=== PATIENT | female | born 1965 | race American Indian/Alaskan Native ===

== ENCOUNTER 2018-12-14 19:49 | Emergency (ER) | payer OTHER ==
[~2018-12-14] VITALS: Ht 162.6 cm; Wt 94.8 kg
--- OUTSIDE RECORDS SUMMARY | ~2018-12-14 | XMS | Clinical Summary ---
Demographics + + + | Address | [address] | | | [place] [address] | + + + | Home Phone | | + + + | Preferred Language | Unknown | + + + | Marital Status | Unknown | + + + | Hinduism Affiliation | Unknown | + + + | Race | Unknown | + + + | Ethnic Group | Unknown | + + + Author + + + | Author | [facility] | | | and [place] | + + + | Organization | [facility] | | | and [place] | + + + | Address | Unknown | + + + | Phone | Unavailable | + + + Support + + +---------+ + | Name | Relationship | Address | Phone | + + +---------+ + | Liv Baugh | ECON | Unknown | | + + +---------+ + | Qasim Gardiner ECON | Unknown | | + + +---------+ + Care Team Providers + +------+ + | Care Children Counselor Name | Role | Phone | + +------+ + | Art Pennington PA-C | PP | | + +------+ + Allergies No Known Allergies Medications + + + +---------+------+------+-------+ | Medication | Sig | Dispensed | Refills | Star | End | Statu | | | | | | t | Date | s | | | | | | Date | | | + + + +---------+------+------+-------+ | | | | 0 | 09/1 | | Activ | | oxyCODONE-acetaminop | | | | 4/20 | | e | | hen (PERCOCET) | | | | 12 | | | | 10-325 mg per tablet | | | | | | | + + + +---------+------+------+-------+ | | | | 0 | 09/1 | | Activ | | oxyCODONE-acetaminop | | | | 4/20 | | e | | hen (PERCOCET) 5-325 | | | | 12 | | | | mg per tablet | | | | | | | + + + +---------+------+------+-------+ | zolpidem (AMBIEN) | Take 10 mg by mouth | | 0 | 05/1 | | Activ | | 10 mg tablet | nightly as needed. | | | 0/20 | | e | | | | | | 10 | | | + + + +---------+------+------+-------+ | Fish Oil OIL | one by mouth daily | | 0 | 05/1 | | Activ | | | | | | 0/20 | | e | | | | | | 10 | | | + + + +---------+------+------+-------+ | | CAPS-25 mg by mouth | | 0 | 05/1 | | Activ | | HYDROCHLOROTHIAZIDE | daily | | | 0/20 | | e | | | | | | 10 | | | + + + +---------+------+------+-------+ | B Complex-C (SUPER | one by mouth daily | | 0 | 05/1 | | Activ | | B COMPLEX) TABS | | | | 0/20 | | e | | | | | | 10 | | | + + + +---------+------+------+-------+ Active Problems + + + | Problem | Noted Date | + + + | ABDOMINAL PAIN | | + + + Social History + +-------+ +--------+------+ | Tobacco Use | Types | Packs/Day | Years | Date | | | | | Used | | + +-------+ +--------+------+ | Never Assessed | | | | | + +-------+ +--------+------+ + + + | Sex Assigned at | Date Recorded | | | | + + + | Not on file | | + + + + + + + | Job Start Date | Occupation | Industry | + + + + | Not on file | Not on file | Not on file | + + + + + + + + | Travel History | Travel Start | Travel End | + + + + + + | No recent travel history available. | + + Last Filed Vital Signs + + + + | Vital Sign | Reading | Time Taken | + + + + | Blood Pressure | 140/100 | 11/14/2009 0000 PDT | + + + + | Pulse | - | - | + + + + | Temperature | - | - | + + + + | Respiratory Rate | - | - | + + + + | Oxygen Saturation | - | - | + + + + | Inhaled Oxygen | - | - | | Concentration | | | + + + + | Weight | 116.6 kg (257 lb) | 11/14/2009 0000 PDT | + + + + | Height | 162.6 cm (5' 4") | 07/04/2009 0000 PST | + + + + | Body Mass Index | 44.11 | 07/04/2009 0000 PST | + + + + Plan of Treatment + + + + + | Health Maintenance | Due Date | Last Done | Comments | + + + + + | Vaccine: | | | | | Dtap/Tdap/Td (1 - | 6 | | | | Tdap) | | | | + + + + + | Cervical Cancer | | | | | Screening (Pap) | 7 | | | + + + + + | Vaccine: Zoster (1 | | | | | of 2) | 7 | | | + + + + + | Vaccine: Influenza | | | | | (Season Ended) | 9 | | | + + + + + Results Not on filefrom Last 3 Months Insurance + +--------+ +--------+ +---------+--------+ | Payer | Benefi | Subscriber | Effect | Phone | Address | Type | | | t Plan | ID | abhijeet | | | | | | / | | Dates | | | | | | Group | | | | | | + +--------+ +--------+ +---------+--------+ | [employer] | [employer] | [id number] | | [phone] | | Medica | | MEDICAID HMO | HEALTH | | 012-Pr | 1 | | id | | | MDCD | | esent | | | | | | HMO OR | | | | | | + +--------+ +--------+ +---------+--------+ | HEALTH | IHS | [id number] | 06/05/ | | | Indemn | | SERVICE | YELLOW | | 2012-P | | | ity | | | HAWK | | resent | | | | + +--------+ +--------+ +---------+--------+ + +--------+ +--------+ + + | Guarantor Name | Accoun | Relation to | Date | Phone | Billing Address | | | t Type | Patient | of | | | | | | | | | | + +--------+ +--------+ + + | Caitlyn Enriquez | Person | Self | [birth year] | [address] | | | al/Fam | | 1965 | [phone] | [place] | | | [place] | | | [address] (Home) | [address] | + +--------+ +--------+ + + Advance Directives Patient has advance care planning documents on file. For more information, please contact:[facility] [place] [address]
--- OUTSIDE RECORDS SUMMARY | ~2018-12-14 | XMS | Clinical Summary ---
Demographics + + + | Address | [address] | | | [place] [address] | + + + | Home Phone | | + + + | Preferred Language | Unknown | + + + | Marital Status | Unknown | + + + | Anabaptist Affiliation | Unknown | + + + | Race | Unknown | + + + | Ethnic Group | Unknown | + + + Author + + + | Author | [facility] | | | and [place] | + + + | Organization | [facility] | | | and [place] | [...] Team Providers + +------+ + | Care Paper Rewinder Name | Role | Phone | + [...] | [employer] | MODA | [id number] | | [phone] | | Medica | | MEDICAID HMO | HEALTH | | 012-Pr | 1 | | id | | | MDCD | | esent | | | | | | HMO [place] | | | | | | + +--------+ +--------+ +---------+--------+ | HEALTH | IHS | [id number] | 06/05/ | | | Indemn | [...] Person | Self | [birth year] | [address] | | | al/Fam | | 1965 | [phone] | [place] | | | [place] | | | 4 (Home) | [address] | + +--------+ +--------+ + + Advance Directives Patient has advance care planning documents on file. For more information, please contact:[facility] [place] [address]
--- OUTSIDE RECORDS SUMMARY | ~2018-12-14 | XMS | Encounter Summary ---
Demographics + + + | Address | [address] | | | [place] [address] | + + + | Home Phone | | + + + | Preferred Language | Unknown | + + + | Marital Status | Single | + + + | Scientology Affiliation | NON | + + + | Race | or | + + + | Ethnic Group | Not or | + + + Author + + + | Author | [facility] | + + + | Organization | [facility] | + + + | Address | Unknown | + + + | Phone | Unavailable | + + + Care Team Providers + +------+ + | Care Employment Clerk Name | Role | Phone | + +------+ + PCP | Unavailable | + +------+ + Encounter Details +--------+ + + + + | Date | Type | Department | Care Team | Description | +--------+ + + + + | 08/20/ | Results | NON-[facility] | Arnulfo Styles, | | | 2012 | Only | Department | MD [address] | | | | | | [address] [place] | | | | | | [address] | | | | | | [phone] | | | | | | | | +--------+ + + + + Social History + +-------+ [...] recent travel history available. | + + documented as of this encounter Plan of Treatment Not on filedocumented as of this encounter Procedures + +--------+ + + + | Procedure Name | Priori | Date/Time | Associated Diagnosis | Comments | | | ty | | | | + +--------+ + + + | UA, DIPSTICK ONLY | Routin | 08/20/2012 | | Results for this | | | e | 10:50 AM | | procedure are in the | | | | PST | | results section. | + +--------+ + + + | HCG QUAL, URINE | Routin | 08/20/2012 | | Results for this | | | e | 10:50 AM | | procedure are in the | | | | PST | | results section. | + +--------+ + + + | ABDOMEN 2 VIEW 37243 | Routin | 08/20/2012 | | Results for this | | | e | 8:58 AM | | procedure are in the | | | | PST | | results section. | + +--------+ + + + | CHEST 2 VIEW 29991 | Routin | 08/20/2012 | | Results for this | | | e | 8:30 AM | | procedure are in the | | | | PST | | results section. | + +--------+ + + + | RAPID FLU | Routin | 08/20/2012 | | Results for this | | | e | 7:57 AM | | procedure are in the | | | | PST | | results section. | + +--------+ + + + | CBC W/DIFF, REFLEX | Routin | 08/20/2012 | | Results for this | | | e | 7:50 AM | | procedure are in the | | | | PST | | results section. | + +--------+ + + + | BASIC METABOLIC SET | Routin | 08/20/2012 | | Results for this | | (NA, K, CL, TCO2, | e | 7:50 AM | | procedure are in the | | BUN, CR, GLU, CA) | | PST | | results section. | + +--------+ + + + | CAP GLU,POC | Routin | 08/20/2012 | | Results for this | | | e | 7:42 AM | | procedure are in the | | | | PST | | results section. | + +--------+ + + + documented in this encounter Results MARVA VOSS ONLY (08/20/2012 10:50 AM PST) + + + + + + | Component | Value | Ref Range | Performed | Pathologist | | | | | At | Signature | + + + + + + | COLOR(UR) | Light-Yellow | YELLOW | [facility] | | | | | | A MEDICAL | | | | | | CENTER | | + + + + + + | APPEARANCE | Clear | CLEAR | [facility] | | | | | | A MEDICAL | | | | | | CENTER | | + + + + + + | SPECIFIC | 1.004 | 1.005 - 1.030 | [facility] | | | GRAVITY | | | A MEDICAL | | | | | | CENTER | | + + + + + + | PH(UR) | 6.5 | 5.0 - 8.0 | [facility] | | | | | | A MEDICAL | | | | | | CENTER | | + + + + + + | PROTEIN, UA | NEG | NEGATIVE | [facility] | | | | | | A MEDICAL | | | | | | CENTER | | + + + + + + | GLUCOSE, UA | NEG | NEGATIVE | [facility] | | | | | | A MEDICAL | | | | | | CENTER | | + + + + + + | KETONES, UA | NEG | NEGATIVE | [facility] | | | | | | A MEDICAL | | | | | | CENTER | | + + + + + + | BILIRUBIN | NEG | NEGATIVE | [facility] | | | | | | A MEDICAL | | | | | | CENTER | | + + + + + + | BLOOD | NEG | NEGATIVE | [facility] | | | | | | A MEDICAL | | | | | | CENTER | | + + + + + + | NITRITES | NEG | NEGATIVE | [facility] | | | | | | A MEDICAL | | | | | | CENTER | | + + + + + + | LEUKOCYTE | NEG | NEGATIVE | [facility] | | | ESTERASE | | | A MEDICAL | | | | | | CENTER | | + + + + + + | UROBILINOGE | NEG | NEGATIVE MG/DL | [facility] | | | N | | | A MEDICAL | | | | | | CENTER | | + + + + + + | SOURCE | CLEAN CATCH | | [facility] | | | | | | A MEDICAL | | | | | | CENTER | | + + + + + + + + | Specimen | + + | | + + + + + + + | Performing | Address | City/State/Zipcode | Phone Number | | Organization | | | | + + + + + | [facility] | And | [place] [address] | [phone] | | MEDICAL CENTER | Streets | | | + + + + + HCG QUAL, URINE (08/20/2012 10:50 AM PST) + + + + + + | Component | Value | Ref Range | Performed | Pathologist | | | | | At | Signature | + + + + + + | HCG QUAL | NEGATIVE | NEGATIVE | [facility] | | | URINE | | | A MEDICAL | | | | | | CENTER | | + + + + + + + + | Specimen | + + | | + + + + + + + | Performing | Address | City/State/Zipcode | Phone Number | | Organization | | | | + + + + + | [facility] | [address] | [place] [address] | [phone] | | [facility] | [facility] | | | + + + + + ABDOMEN 2 VIEW [id number] (08/20/2012 8:58 AM PST) + + | Specimen | + + | | + + + + + | Narrative | Performed At | + + + | Exam: Abdomen two views. Indication: 47-year-old female with | [facility] | | abdominal pain. Comparison: None available. Findings: Supine | DEPARTMENT OF | | and upright abdominal films were obtained. There is increased | RADIOLOGY | | colonic stool. There are no signs of bowel obstruction, ileus or | | | pneumoperitoneum. Opaque density, probably a pill, projects in the | | | stomach. There are cholecystectomy clips. | | | Impression: Increased colonic stool. | | + + + + + | Procedure Note | + + | Interface, Radiology Results - 02/07/2015 5:39 PM PDT Exam: Abdomen two views. | | Indication: 47-year-old female with abdominal pain. | | Comparison: None available. | | Findings: Supine and upright abdominal films were obtained. There | | is increased colonic stool. There are no signs of bowel obstruction, | | ileus or pneumoperitoneum. Opaque density, probably a pill, projects | | in the stomach. There are cholecystectomy clips. | | Impression: Increased colonic stool. | + + + +---------+ + + | Performing | Address | City/State/Zipcode | Phone Number | | Organization | | | | + +---------+ + + | [facility] | | | | | RADIOLOGY | | | | + +---------+ + + CHEST 2 VIEW [id number] (08/20/2012 8:30 AM PST) + + | Specimen | + + | | + + + + + | Narrative | Performed At | + + + | Exam: Chest, two views. Indication: 47-year-old female with | [facility] | | chills. Comparison: None available. Findings: PA and lateral | DEPARTMENT OF | | films were obtained. There is suboptimal depth of | RADIOLOGY | | inspiration. Heart size is within normal limits. Pulmonary | | | vessels are not congested. Lungs are clear; no signs of pneumonia, | | | atelectasis, adenopathy or pleural effusion. Descending aorta is | | | uncoiled. There are cholecystectomy clips in right upper quadrant. | | | Impression: No evidence of pneumonia. | | + + + + + | Procedure Note | + + | Interface, Radiology Results - 02/07/2015 5:39 PM PDT Exam: Chest, two views. | | Indication: 47-year-old female with chills. | | Comparison: None available. | | Findings: PA and lateral films were obtained. There is suboptimal | | depth of inspiration. Heart size is within normal limits. Pulmonary | | vessels are not congested. Lungs are clear; no signs of pneumonia, | | atelectasis, adenopathy or pleural effusion. Descending aorta is | | uncoiled. There are cholecystectomy clips in right upper quadrant. | | Impression: No evidence of pneumonia. | + + + +---------+ + + | Performing | Address | City/State/Zipcode | Phone Number | | Organization | | | | + +---------+ + + | [facility] | | | | | RADIOLOGY | | | | + +---------+ + + RAPID FLU (08/20/2012 7:57 AM PST) + + + + + + | Component | Value | Ref Range | Performed | Pathologist | | | | | At | Signature | + + + + + + | FLU A | FLU A NOT DETECTED | | [facility] | | | | | | A MEDICAL | | | | | | CENTER | | + + + + + + | FLU B | FLU B NOT DETECTED | | [facility] | | | | | | A MEDICAL | | | | | | CENTER | | + + + + + + | SPECIMEN | DOCUMENT MANAGEMENT TECHNICIAN SWAB MINI TIP | | [facility] | | | | | | A MEDICAL | | | | | | CENTER | | + + + + + + + + | Specimen | + + | | + + + + + + + | Performing | Address | City/State/Zipcode | Phone Number | | Organization | | | | + + + + + | [facility] | | | | | LABORATORY | | | | + + + + + | [facility] | And | [place] [address] | [phone] | | MEDICAL CENTER | Streets | | | + + + + + DORITA Ramirez/PIERRE SANCHEZ (08/20/2012 7:50 AM PST) + + + + + + | Component | Value | Ref Range | Performed | Pathologist | | | | | At | Signature | + + + + + + | WHITE BLOOD | 7.1 | 4.3 - 11.0 X10 | [facility] | | | CELL COUNT | | 3/uL | A MEDICAL | | | | | | CENTER | | + + + + + + | HEMOGLOBIN | 13.4 | 12.0 - 16.0 | [facility] | | | | | g/dL | A MEDICAL | | | | | | CENTER | | + + + + + + | RED BLOOD | 4.81 | 4.2 - 5.4 X10 | [facility] | | | CELL COUNT | | 6/uL | A MEDICAL | | | | | | CENTER | | + + + + + + | HEMATOCRIT | 41.6 | 38.0 - 47.0 % | [facility] | | | | | | A MEDICAL | | | | | | CENTER | | + + + + + + | MCV | 86.6 | 82 - 100 fl | [facility] | | | | | | A MEDICAL | | | | | | CENTER | | + + + + + + | MCH | 27.8 (L) | 28.0 - 32.0 pg | [facility] | | | | | | A MEDICAL | | | | | | CENTER | | + + + + + + | MCHC | 32.1 | 32 - 36 g/dL | [facility] | | | | | | A MEDICAL | | | | | | CENTER | | + + + + + + | RDW | 14.7 | 12 - 15 fL | [facility] | | | | | | A MEDICAL | | | | | | CENTER | | + + + + + + | PLATELET | 261 | 150 - 450 X10 3 | [facility] | | | COUNT | | | A MEDICAL | | | | | | CENTER | | + + + + + + | MPV | 8.3 (L) | 9.0 - 12.0 fL | [facility] | | | | | | A MEDICAL | | | | | | CENTER | | + + + + + + | NEUTROPHIL | 66.7 | 40 - 80 % | [facility] | | | % | | | A MEDICAL | | | | | | CENTER | | + + + + + + | LYMPHOCYTE | 24.2 | 20 - 50 % | [facility] | | | % | | | A MEDICAL | | | | | | CENTER | | + + + + + + | EOS % | 1.2 | 0 - 5 % | [facility] | | | | | | A MEDICAL | | | | | | CENTER | | + + + + + + | BASO % | 2.8 (H) | 0 - 1 % | [facility] | | | | | | A MEDICAL | | | | | | CENTER | | + + + + + + | MONOCYTE % | 5.1 | 2 - 10 % | [facility] | | | | | | A MEDICAL | | | | | | CENTER | | + + + + + + | BANDS % | DOCUMENT MANAGEMENT TECHNICIAN | 0 - 7 % | [facility] | | | | | | A MEDICAL | | | | | | CENTER | | + + + + + + + + | Specimen | + + | | + + + + + + + | Performing | Address | City/State/Zipcode | Phone Number | | Organization | | | | + + + + + | [facility] | And | [place] [address] | [phone] | | MEDICAL CENTER | Streets | | | + + + + + BASIC METABOLIC SET (NA, K, CL, TCO2, BUN, CR, GLU, CA) (08/20/2012 7:50 AM PST) + +---------+ + + + | Component | Value | Ref Range | Performed | Pathologist | | | | | At | Signature | + +---------+ + + + | SODIUM, | 142 | 137 - 146 MEQ/L | [facility] | | | PLASMA | | | A MEDICAL | | | (LAB) | | | CENTER | | + +---------+ + + + | POTASSIUM, | 3.8 | 3.5 - 5.2 MEQ/L | [facility] | | | PLASMA | | | A MEDICAL | | | (LAB) | | | CENTER | | + +---------+ + + + | CO2 | 26 | 22 - 28 MEQ/L | [facility] | | | | | | A MEDICAL | | | | | | CENTER | | + +---------+ + + + | CHLORIDE, | 108 (H) | 98 - 106 MEQ/L | [facility] | | | PLASMA | | | A MEDICAL | | | (LAB) | | | CENTER | | + +---------+ + + + | ANION GAP | 11.8 | 8 - 16 MEQ/L | [facility] | | | | | | A MEDICAL | | | | | | CENTER | | + +---------+ + + + | GLUCOSE, | 155 (H) | 70 - 105 MG/DL | [facility] | | | PLASMA | | | A MEDICAL | | | (LAB) | | | CENTER | | + +---------+ + + + | BUN, PLASMA | 12 | 8 - 30 MG/DL | [facility] | | | (LAB) | | | A MEDICAL | | | | | | CENTER | | + +---------+ + + + | CREATININE | 0.64 | 0.6 - 1.1 MG/DL | [facility] | | | PLASMA | | | A MEDICAL | | | (LAB) | | | CENTER | | + +---------+ + + + | BUN/CREATIN | 18 | 6 - 20 RATIO | [facility] | | | INE RATIO | | | A MEDICAL | | | | | | CENTER | | + +---------+ + + + | CALCIUM, | 9.7 | 8.5 - 10.8 | [facility] | | | PLASMA | | MG/DL | A MEDICAL | | | (LAB) | | | CENTER | | + +---------+ + + + | AMYLASE,JOCY | 34 | 28 - 100 U/L | [facility] | | | SMA | | | A MEDICAL | | | | | | CENTER | | + +---------+ + + + | AST(SGOT) | 34 | 10 - 41 U/L | [facility] | | | | | | A MEDICAL | | | | | | CENTER | | + +---------+ + + + | ALT (SGPT) | 24 | 7 - 51 U/L | [facility] | | | | | | A MEDICAL | | | | | | CENTER | | + +---------+ + + + | ALK PHOS | 72 | 40 - 180 U/L | [facility] | | | | | | A MEDICAL | | | | | | CENTER | | + +---------+ + + + | TOTAL | 8.4 | 6.7 - 8.5 G/DL | [facility] | | | PROTEIN, | | | A MEDICAL | | | PLASMA | | | CENTER | | | (LAB) | | | | | + +---------+ + + + | ALBUMIN, | 4.6 | 3.5 - 5.0 G/DL | [facility] | | | PLASMA | | | A MEDICAL | | | (LAB) | | | CENTER | | + +---------+ + + + | BILIRUBIN | 1.2 | 0.2 - 1.6 MG/DL | [facility] | | | TOTAL | | | A MEDICAL | | | | | | CENTER | | + +---------+ + + + | BILIRUBIN | 0.1 | 0.0 - 0.3 MG/DL | [facility] | | | DIRECT | | | A MEDICAL | | | | | | CENTER | | + +---------+ + + + | INDIRECT | 1.1 (H) | 0.1 - 1.0 MG/DL | [facility] | | | BILIRUBIN | | | A MEDICAL | | | | | | CENTER | | + +---------+ + + + | LIPASE | 31 | 5 - 57 U/L | [facility] | | | (LAB) | | | A MEDICAL | | | | | | CENTER | | + +---------+ + + + | ESTIMATED | 106.7 | >60 | [facility] | | | GFR | | | A MEDICAL | | | | | | CENTER | | + +---------+ + + + | FASTING? | UNK | HR | [facility] | | | | | | A MEDICAL | | | | | | CENTER | | + +---------+ + + + + + | Specimen | + + | | + + + + + + + | Performing | Address | City/State/Zipcode | Phone Number | | Organization | | | | + + + + + | [facility] | And | [place] [address] | [phone] | | [facility] | Streets | | | + + + + + CAP GLU,POC (08/20/2012 7:42 AM PST) + + + + + -+ | Component | Value | Ref Range | Performed | Pathologist | | | | | At | Signature | + + + + + -+ | BLOOD | 147 (H)Comment: Meter | 70 - 110 MG/DL | [facility] | | | GLUCOSE, | ID: [id number]: | | OF CARE | | | POC | [id number] Ovi Saravia | | TESTING | | | |Therapy Manager: [id number] Ovi Saravia | | | | | | | | | | + + + + + -+ + + | Specimen | + + | | + + + +---------+ + + | Performing | Address | City/State/Zipcode | Phone Number | | Organization | | | | + +---------+ + + | [facility] | | | | | TESTING | | | | + +---------+ + + documented in this encounter Visit Diagnoses Not on filedocumented in this encounter"
--- OUTSIDE RECORDS SUMMARY | ~2018-12-14 | XMS | Clinical Summary ---
Demographics + + + | Address | [address] | | | [place] [address] | + + + | Home Phone | | + + + | Preferred Language | Unknown | + + + | Marital Status | Single | + + + | Caodaism Affiliation | NON | + + + | Race | or | + + + | Ethnic Group | Not or | + + + Author + + + | Organization | Unknown | + + + | Address | Unknown | + + + | Phone | Unavailable | + + + Care Team Providers + +------+ + | Care Oil Well Driller Name | Role | Phone | + +------+ + PP | Unavailable | + +------+ + Source Comments [facility] fully [facility] Allergies Not on File Medications Not on file Active Problems Not on file Social History + +-------+ +--------+------+ | Tobacco [...] recent travel history available. | + + Plan of Treatment + + + + + | Health Maintenance | Due Date | Last Done | Comments | + + + + + | Influenza (Flu) | | | | | vaccination (Season | 9 | | | | Ended) | | | | + + + + + | Pneumococcal | Aged Out | | No longer eligible | | vaccination | | | based on patient's | | | | | age to complete this | | | | | topic | + + + + + Results Not on filefrom Last 3 Months"
--- OUTSIDE RECORDS SUMMARY | ~2018-12-14 | XMS | Encounter Summary ---
Demographics + + + | Address | [address] | | | [place] [address] | + + + | Home Phone | | + + + | Preferred Language | Unknown | + + + | Marital Status | Single | + + + | Mormonism Affiliation | NON | + + + | Race | or | + + + | Ethnic Group | Not or | + + + Author + + + | Author | [facility] | + + + | Organization | [facility] | + + + | Address | Unknown | + + + | Phone | Unavailable | + + + Care Team Providers + +------+ + | Care Acoustical Engineer Name | Role | Phone | + [...] [place] | | | | | | [address] | | | | | | [phone] | | | | | | | [...] + + + | ABDOMEN 2 VIEW [id number] | Routin | 08/20/2012 | | Results for this | | | e | 8:58 AM | | procedure are in the | | | | PST | | results section. | + +--------+ + + + | CHEST 2 VIEW [id number] | Routin | 08/20/2012 | | Results [...] + + | [facility] | And | [place] [address] | [phone] | | MEDICAL CENTER | Streets | [...] + + | [facility] | [address] | [place] [address] | [phone] | | [facility] | [facility] | | | + + + + + ABDOMEN 2 VIEW [id number] (08/20/2012 8:58 AM PST) + + | [...] + +---------+ + + CHEST 2 VIEW [id number] (08/20/2012 8:30 AM PST) + + | [...] + + + + | SPECIMEN | HOME ENERGY RATER SWAB MINI TIP | | [facility] | [...] | + + + + + | [facility] | And | [place] [address] | [phone] | | MEDICAL CENTER | Streets | [...] + + + | BANDS % | HOME ENERGY RATER | 0 - 7 % | [facility] [...] | [facility] | And | [place] [address] | [phone] | | MEDICAL CENTER | Streets | [...] 142 | 137 - 146 MEQ/L | [facility] | | | PLASMA | | | [...] | + + + + + | [facility] | And | [place] [address] | [phone] | | [facility] | Streets | | | + [...] POINT | | | GLUCOSE, | ID: [id number]: | | OF CARE | | | POC | [id number] Ovi Saravia | | TESTING | | | |Solar Sales Ambassador: [id number] Ovi Saravia | | | | | [...]
--- OUTSIDE RECORDS SUMMARY | ~2018-12-14 | XMS | Clinical Summary ---
Demographics + + + | Address | [address] | | | [place] [address] | + + + | Home Phone | | + + + | Preferred Language | Unknown | + + + | Marital Status | Single | + + + | Gnosticist Affiliation | NON | + + + | Race | or | + + + | Ethnic Group | Not or | + + + Author + + + | Organization | Unknown | + + + | Address | Unknown | + + + | Phone | Unavailable | + + + Care Team Providers + +------+ + | Care Inventory Technician Name | Role | Phone | + +------+ + PP | Unavailable | + +------+ + Source Comments [facility] Allergies Not on File Medications Not on [...]
[~2018-12-14 19:49] MED LIST: 1ST CHOICE LAN1 EACH MISC; AMBIEN10 MG PO; ASPIR-LOW81 MG PO; BACTRIM DS TAB1 EACH PO; BUPROPION XL300 MG PO; CEPHALEXIN500 MG PO; COZAAR100 MG PO; CRESTOR10 MG PO; DILANTIN100 MG PO; GLUCOPHAGE1000 MG PO; GLYBURIDE2.5 MG PO; GLYBURIDE5 MG PO; HYDROCHLOROTHIA25 MG PO; HYDROCORTISONE28 G3 TP; INSULIN; LANTUS SOL100 UNIT/1 SUB-Q; LEVAQUIN500 MG PO; LEVEMIR100 UNIT/1 SUB-Q; LISINOPRIL10 MG PO; LOMOTIL TABLET1 EACH PO; MAGNESIUM OXID400 MG PO; NEURONTIN600 MG; NICORETTE2 MG MM; NORCO 5-325 TA1 EACH PO; NOVOLOG FL100 UNIT/1 SUB-Q; OXYCODONE-ACET1 EAC1 PO; POTASSIUM CHLO10 MEQ PO; PROZAC20 MG PO; SEROQUEL XR150 MG PO; SEROQUEL XR300 MG PO; SEROQUEL300 MG PO; TRAMADOL HCL50 MG PO; XANAX2 MG PO; ZITHROMAX250 MG PO; ZOFRAN ODT8 MG PO; ZOLPIDEM TARTRA10 MG PO
[2018-12-14] MEDS ORDERED: BACTRIM DS TAB1 EACH PO (20:23)
== END 2018-12-14 21:00 | disposition home or self-care (01) ==
LOC: ED 19:49
DX: S31.103A Unspecified open wound of abdominal wall, right lower quadrant without penetration into peritoneal cavity, initial encounter (principal); L03.311 Cellulitis of abdominal wall; E11.9 Type 2 diabetes mellitus without complications; I10 Essential (primary) hypertension; F41.9 Anxiety disorder, unspecified; Z86.73 Personal history of transient ischemic attack (TIA), and cerebral infarction without residual deficits; F17.200 Nicotine dependence, unspecified, uncomplicated; Z90.710 Acquired absence of both cervix and uterus; Z88.8 Allergy status to other drugs, medicaments and biological substances; Z79.82 Long term (current) use of aspirin; Z79.4 Long term (current) use of insulin; Z79.899 Other long term (current) drug therapy; X58.XXXA Exposure to other specified factors, initial encounter; Z23 Encounter for immunization
CPT/HCPCS: 90471; 90715; 99284-25

== ENCOUNTER 2021-03-27 09:41 | Emergency (ER) | payer OTHER ==
[~2021-03-27] VITALS: Ht 162.6 cm; Wt 95.2 kg
[~2021-03-27 09:41] MED LIST changes: +CIPRO500 MG PO
[2021-03-27] MEDS ORDERED: MECLIZINE HCL25 MG PO (13:21)
== END 2021-03-27 13:40 | disposition home or self-care (01) ==
LOC: ED 09:41
DX: S06.9X9A Unspecified intracranial injury with loss of consciousness of unspecified duration, initial encounter (principal); S00.03XA Contusion of scalp, initial encounter; S70.02XA Contusion of left hip, initial encounter; S20.212A Contusion of left front wall of thorax, initial encounter; S40.012A Contusion of left shoulder, initial encounter; E11.9 Type 2 diabetes mellitus without complications; R42 Dizziness and giddiness; I10 Essential (primary) hypertension; F17.200 Nicotine dependence, unspecified, uncomplicated; Z88.6 Allergy status to analgesic agent; Y04.8XXA Assault by other bodily force, initial encounter; Z88.1 Allergy status to other antibiotic agents; Z86.73 Personal history of transient ischemic attack (TIA), and cerebral infarction without residual deficits; Z88.8 Allergy status to other drugs, medicaments and biological substances; Z79.82 Long term (current) use of aspirin
CPT/HCPCS: 70450; 71101; 73030; 73502; 80053; 85025; 96374; 96375; 99284-25; J1200; J1885; J2765; J7030

== ENCOUNTER 2021-07-21 22:07 | Emergency (ER) | payer OTHER ==
[~2021-07-21] VITALS: Ht 162.6 cm; Wt 90.9 kg
[~2021-07-21 22:07] MED LIST changes: +MECLIZINE HCL25 MG PO
[2021-07-22] MEDS ORDERED: HYDROCODON-ACE1 EA10 PO (02:18)
[2021-07-22] MEDS ORDERED: CEPHALEXIN500 MG PO (02:19)
--- NOTE | 2021-07-22 04:50 | NUR ---
SWAB DONE TO BOTH NARES AT 2235 ON 07-21-2021
== END 2021-07-22 02:37 | disposition home or self-care (01) ==
LOC: ED 22:07
DX: U07.1 COVID-19 (principal); E11.9 Type 2 diabetes mellitus without complications; I10 Essential (primary) hypertension; G47.00 Insomnia, unspecified; F17.200 Nicotine dependence, unspecified, uncomplicated; Z88.1 Allergy status to other antibiotic agents; Z88.8 Allergy status to other drugs, medicaments and biological substances; Z79.82 Long term (current) use of aspirin; Z23 Encounter for immunization
CPT/HCPCS: 80053; 81001; 85025; 96374; 96375; 99284-25; A9270; C9803; J1170; J1885; M0247; U0003

== ENCOUNTER 2024-03-16 11:56 | Emergency (ER) | payer OTHER ==
[~2024-03-16] VITALS: Ht 162.6 cm; Wt 210.0 kg
[~2024-03-16 11:56] MED LIST changes: +HYDROCODON-ACE1 EA10 PO
[2024-03-16] MEDS ORDERED: KETOROLAC TROMETHAMINE 15 MG/ML VIAL IV ONE ×2 (12:30→15:45)
[2024-03-16] MEDS ORDERED: SODIUM CHLORIDE 0.9% 1,000 ML IV PRN (12:30)
[2024-03-16] MEDS ORDERED: ondansetron HCL 4 MG/2 ML VIAL IV PRN (12:30)
[2024-03-16 12:57] LABS: EOSINOPHILS 1.4 % (0-6); HEMATOCRIT 44.1 % (35.0-50.0); LYMPHOCYTES 31.4 % (24-44); MCH 28.9 (27-36); MCHC 34.1 g/dl (30-36); MCV 84.7 fl (81-99); MONOCYTES 6.1 % (0-12); NEUTROPHILS 60.1 % (39-80); PLATELET COUNT 312 K/uL (140-440); RBC 5.21 M/ul (4.3-5.7); RDW 14.2 (10.5-15.0)
[2024-03-16 13:07] LABS: ALBUMIN 3.5 g/dL (3.4-5.0); ALBUMIN/GLOBULIN RATIO 0.95 (1.1-2.4); ANION GAP 9.2 (7-21); BILIRUBIN, TOTAL 0.8 ng/dL (0.2-1.0); BUN/CREATININE RATIO 15.59 (6.0-28.6); CALCIUM 9.1 mg/dL (8.5-10.1); CREATININE, SERUM 1.09 mg/dL (0.55-1.02); POTASSIUM 3.2 mmol/L (3.5-5.1); PROTEIN, TOTAL 7.2 g/dL (6.4-8.2)
[2024-03-16 13:37] LABS: BILIRUBIN, URINE NEGATIVE (negative); BLOOD/HGB, URINE NEGATIVE (Negative); KETONE, URINE TRACE (Negative); LEUK ESTERASE, URINE TRACE (negative); NITRITE, URINE POSITIVE (negative)
[2024-03-16 13:49] LABS: CASTS, URINE NONE SEEN \\lpf; CRYSTALS, URINE NONE SEEN (0-1+); RED BLOOD CELLS, URINE 0-1 /hpf (0-5)
[2024-03-16 13:50] LABS: BACTERIA, URINE 4+ /hpf (negative); WHITE BLOOD CELLS, URINE >50 /HPF (0-5)
[2024-03-16 13:51] LABS: EPITHELIAL CELLS, URINE SQUAMOUS 2+ /lpf (0-1+)
[2024-03-16 13:52] LABS: COLLECTION TYPE, URINE CLEAN CATCH; REFLEX CULTURE, URINE No (No)
[2024-03-16] MEDS ORDERED: HYDROmorphone HCL 1 MG/ML SYR IV ONE ×2 (15:45→17:45)
[2024-03-16] MEDS ORDERED: CIPROFLOXACIN/D5W 400 MG IV ONE (15:45)
[2024-03-16] MEDS ORDERED: ONDANSETRON ODT4 MG PO (18:44)
[2024-03-16] MEDS ORDERED: CEFDINIR300 MG PO (18:44)
[2024-03-16] MEDS ORDERED: HYDROCODON-ACE1 EA10 PO (18:44)
[2024-03-16 19:02] VITALS: BP 148/86
[2024-03-16] MEDS ORDERED: ONDANSETRON 4 MG HOME.PACK SL ONE (19:30)
== END 2024-03-16 19:02 | disposition home or self-care (01) ==
LOC: ED 11:56
PROVIDERS: Emergency Medicine
DX: N12 Tubulo-interstitial nephritis, not specified as acute or chronic (principal); E11.9 Type 2 diabetes mellitus without complications; I10 Essential (primary) hypertension; F17.200 Nicotine dependence, unspecified, uncomplicated; Z86.73 Personal history of transient ischemic attack (TIA), and cerebral infarction without residual deficits; Z88.8 Allergy status to other drugs, medicaments and biological substances; Z79.82 Long term (current) use of aspirin
CPT/HCPCS: 36415; 74176; 80053; 81001; 85025; 96365; 96375; 96376; 99284-25; J0744; J1170; J1885; J2405; J7030

== ENCOUNTER 2024-03-17 10:21 | Inpatient (IN) | payer OTHER ==
[~2024-03-17] VITALS: Ht 162.6 cm; Wt 92.0 kg
[~2024-03-17 10:21] MED LIST changes: +CEFDINIR300 MG PO; +ONDANSETRON ODT4 MG PO
--- OUTSIDE RECORDS SUMMARY | 2024-03-17 10:28 | XMS ---
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 Jimmy has no Care Guidelines for this patient. Susan VISIT COUNT (12 MO.) 2 [facility] TOTAL 2 NOTE: Visits indicate total known visits. ED/C VISIT TRACKING (12 MO.) 03[facility]17/2024 10:22 [facility] COMPLAINT: - FLANK PAIN 03/16/2024 11:57 [facility] [place] TYPE: Emergency COMPLAINT: - FLANK PAIN INPATIENT VISIT TRACKING (12 MO.) No inpatient visits to display in this time frame [email or web address]
[2024-03-17] MEDS ORDERED: CEFTRIAXONE/SODIUM CHLORIDE 2 GM/100 ML PIGGYBACK IV ONE (10:45)
[2024-03-17] MEDS ORDERED: HYDROmorphone HCL 1 MG/ML SYR IV PRN ×2 (10:45→16:00)
[2024-03-17] MEDS ORDERED: SODIUM CHLORIDE 0.9% 1,000 ML IV ONE (10:45)
[2024-03-17] MEDS ORDERED: ondansetron HCL 4 MG/2 ML VIAL IV ONE (10:45)
[2024-03-17] MEDS ORDERED: KETOROLAC TROMETHAMINE 15 MG/ML VIAL IV ONE (10:45)
[2024-03-17 11:00] LABS: EOSINOPHILS 0.9 % (0-6); HEMATOCRIT 43.1 % (35.0-50.0); HEMOGLOBIN 14.5 g/dL (12.0-18.0); LYMPHOCYTES 27.8 % (24-44); MCH 28.7 (27-36); MCHC 33.5 g/dl (30-36); MCV 85.5 fl (81-99); MONOCYTES 6.5 % (0-12); NEUTROPHILS 63.8 % (39-80); PLATELET COUNT 277 K/uL (140-440); RBC 5.04 M/ul (4.3-5.7); RDW 13.9 (10.5-15.0)
[2024-03-17] MEDS ORDERED: CIPROFLOXACIN/D5W 400 MG IV ONE (11:00)
[2024-03-17 11:16] LABS: ALBUMIN 3.5 g/dL (3.4-5.0); ANION GAP 10.9 (7-21); BILIRUBIN, TOTAL 1.2 ng/dL (0.2-1.0); BUN/CREATININE RATIO 15.11 (6.0-28.6); CALCIUM 8.5 mg/dL (8.5-10.1); CREATININE, SERUM 0.86 mg/dL (0.55-1.02); POTASSIUM 2.9 mmol/L (3.5-5.1)
[2024-03-17] MEDS ORDERED: POTASSIUM CHLORIDE 10 MEQ/100 ML BAG IV SCH (12:45)
[2024-03-17 13:15] LABS: BILIRUBIN, URINE NEGATIVE (negative); BLOOD/HGB, URINE NEGATIVE (Negative); KETONE, URINE TRACE (Negative); LEUK ESTERASE, URINE TRACE (negative); NITRITE, URINE POSITIVE (negative)
[2024-03-17] MEDS ORDERED: POTASSIUM CHLORIDE 10 MEQ/100 ML BAG IV ONE (13:15)
[2024-03-17 13:22] LABS: BACTERIA, URINE RARE /hpf (negative); CASTS, URINE NONE SEEN \\lpf; CRYSTALS, URINE NONE SEEN (0-1+); EPITHELIAL CELLS, URINE SQUAMOUS 3+ /lpf (0-1+); REFLEX CULTURE, URINE No (No)
[2024-03-17 13:23] LABS: COLLECTION TYPE, URINE CLEAN CATCH
[2024-03-17] MEDS ORDERED: ondansetron HCL 4 MG/2 ML VIAL IV PRN (13:30)
[2024-03-17] MEDS ORDERED: ACETAMINOPHEN 325 MG TAB PO PRN (13:30)
[2024-03-17] MEDS ORDERED: SODIUM CHLORIDE 0.9% 1,000 ML IV SCH (13:30)
--- NOTE | 2024-03-17 13:52 | NUR ---
SBAR REPORT RECEIVED FROM VALERIE RN FROM EMERGENCY DEPARTMENT. ROSEANNA WAS BROUGHT IN ON ED GURNEY, ALERT AND ORIENTED X 4, PAIN 6/10 RIGHT FLANK AREA, ENDORSING FEELING COLD. WARM BLANKET PROVIDED. SISTERS DEWAYNE AND CARRIE SEE INITIAL ASSESSMENT.
[2024-03-17] MEDS ORDERED: POTASSIUM CHLORIDE 20 MEQ in SODIUM CHLORIDE 0.9% 250 ML IV ONE (14:00)
[2024-03-17] MEDS ORDERED: PIPERACILLIN/TAZOBACTAM 3.375 GM in DEXTROSE 5% 100 ML IV SCH (14:00)
[2024-03-17 14:25] VITALS: BP 165/100
--- NOTE | 2024-03-17 15:33 | NUR ---
[place] "YULIET" IS RESTING IN BED WITH EYES CLOSED. DAUGHTER SUNSHINE AND SON AT BEDSIDE. ANTIBIOTICS, POTASSIUM, AND NS GTT ACTIVE AND INFUSING. WARM BLANKETS, JELLO, PUDDING, ENSURE, AND ICE WATER PROVIDED.
--- NOTE | 2024-03-17 15:59 | NUR ---
PATIENT IN BED AT THIS TIME. CALL LIGHT WITHIN REACH, NO FURTHER NEEDS AT THIS TIME.
--- NOTE | 2024-03-17 16:07 | NUR ---
YULIET IS NOTED TO BE RESTING IN BED WITH EYES CLOSED. NO NEEDS ENDORSED OR IDENTIFIED AT THIS TIME
--- NOTE | 2024-03-17 17:09 | NUR ---
PATIENT IN BED AT THIS TIME. CALL LIGHT WITHIN REACH, NO FURTHER NEEDS AT THIS TIME.
--- NOTE | 2024-03-17 17:25 | NUR ---
PATIENT CALLED TO USE BATHROOM. THIS INSTALLATION SPECIALIST IN TO ASSIST PATIENT. PATIENT UP TO BATHROOM AND BACK TO BED, SBA. CALL LIGHT IN REACH. BED ALARM. NO FURTHER NEEDS AT THIS TIME.
[2024-03-17 17:56] VITALS: BP 139/83
--- NOTE | 2024-03-17 18:23 | NUR ---
PATIENT IN BED AT THIS TIME. SUPERVISOR REMELT CHARTED VITALS AND I&O'S. CALL LIGHT WITHIN REACH, NO FURTHER NEEDS AT THIS TIME.
[2024-03-17 18:35] VITALS: BP 139/83
[2024-03-17] MEDS ORDERED: DEXTROSE 50% 50 ML SYR IV PRN ×2 (19:30)
[2024-03-17] MEDS ORDERED: IBLOOD GLUCOSE TEST STRIP 1 EA TEST XX PRN (19:30)
[2024-03-17] MEDS ORDERED: DEXTROSE 5% 1,000 ML IV PRN (19:30)
[2024-03-17] MEDS ORDERED: GLUCAGON,HUMAN RECOMBINANT 1 MG/ML VIAL SUB-Q PRN (19:30)
--- NOTE | 2024-03-17 19:46 | NUR ---
REPORT RECIEVED FROM DAY SHIFT RN. PATIENT RESTING IN BED ON BACK WITH EYES CLOSED. RESPIRATIONS EVEN AND UNLABORED. CALL LIGHT IN REACH.
[2024-03-17] MEDS ORDERED: PHENAZOPYRIDINE HCL 95 MG TAB PO PRN (20:00)
--- NOTE | 2024-03-17 20:48 | NUR ---
CALL LIGHT ANSWERED. IV PUMP ALARMING, DISTAL OCCLUSION. SITE ASSESSED, IVF INFUSING WNL. BED ALARM ON.
[2024-03-17 20:59] VITALS: BP 157/83
[2024-03-17] MEDS ORDERED: IBLOOD GLUCOSE TEST STRIP 1 EA TEST VI SCH (21:00)
[2024-03-17] MEDS ORDERED: MELATONIN 3 MG TAB PO PRN (21:00)
[2024-03-17] MEDS ORDERED: INSULIN LISPRO 100 UNIT/ML ML SUB-Q SCH (21:00)
--- NOTE | 2024-03-17 21:03 | NUR ---
BED ALARM SOUNDING. pt ROLLING AROUND IN BED. RATES PAIN 8/10 IN RIGHT FLANK. PRN PAIN MEDICATION ADMINISTERED. PRIMARY RN VENU IN ROOM.
--- NOTE | 2024-03-17 21:20 | NUR ---
BS OBTAINED AND RECORDED. SS INSULIN ADMINISTERED PER PROTOCOL. NEW BAG IV ABX INFUSING PER ORDER. IV FLUSHES WNL. PATIENT DENIES FURTHER NEEDS. ASSESSMENT COMPLETE. CALL LIGHT IN REACH. BED ALARM ON FOR SAFETY.
--- NOTE | 2024-03-17 21:40 | NUR ---
CALL PLACED TO MD REGARDING PATIENTS ANXIETY. MD TO PLACE ORDERS.
[2024-03-17] MEDS ORDERED: LORazepam 0.5 MG TAB PO PRN (21:45)
[2024-03-17 22:15] VITALS: BP 157/83
--- NOTE | 2024-03-17 23:34 | NUR ---
PATIENT RESTING IN BED ON BACK WITH EYES CLOSED. RESPIRATIONS EVEN AND UNLABORED. CALL LIGHT IN REACH.
[2024-03-18] VITALS (11 sets, daily range): BP systolic 135–180; BP diastolic 82–95
--- NOTE | 2024-03-18 00:56 | NUR ---
1PA PATIENT USED THE BATHROOM WITH WALKER VOIDED 100ML DARK/CONCENTRATED URINE. PATIENT IS BACK IN BED. V/S AND OUTPUT TAKEN AND CHARTED. NO FURTHER REQUEST AT THIS TIME. BED ALARM ON FOR SAFETY.
--- NOTE | 2024-03-18 01:21 | NUR ---
IV PUMP ALARMING. NEW BAG IV FLUID INFUSING PER ORDER. PATIENT HAS NO FURTHER NEEDS. CALL LIGHT IN REACH.
--- NOTE | 2024-03-18 03:07 | NUR ---
ROUNDING ON PATIENT. PATIENT AWAKE IN BED. PATIENT REPORTS 5/10 HEADACHE AND STATES "MY HEAD IS WARM". PRN PAIN MEDICATION ADMINSITERED. PRN TEMP OBTAINED AND RECORDED PER PATIENT REQUEST. PATIENT ORAL TEMP IS 98.9. PATIENT HAS NO FURTHER NEEDS. BED ALARM ON FOR SAFETY. CALL LIGHT IN REACH.
--- NOTE | 2024-03-18 04:55 | NUR ---
VS AND I&Os OBTAINED AND RECORDED. PATIENT REPORTS HEADACHE PAIN AT THIS TIME. PRN PAIN MEDICATION AND AZO ADMINISTERED PER PATIENT REQUEST. COLD WASH CLOTH PLACED ON PATIENT FOREHEAD. FRESH ICE PACK PROVIDED. PATIENT HAS NO FURTHER NEEDS AT THIS TIME. CALL LIGHT IN REACH.
[2024-03-18 05:44] LABS: BASOPHILS 0.8 % (0-2); EOSINOPHILS 0.9 % (0-6); HEMATOCRIT 38.5 % (35.0-50.0); LYMPHOCYTES 30.3 % (24-44); MCH 29.1 (27-36); MCHC 33.8 g/dl (30-36); MCV 86.1 fl (81-99); MONOCYTES 7.5 % (0-12); NEUTROPHILS 60.5 % (39-80); PLATELET COUNT 247 K/uL (140-440); RBC 4.46 M/ul (4.3-5.7); RDW 13.9 (10.5-15.0)
--- NOTE | 2024-03-18 05:59 | NUR ---
PATIENT REPEAT BP OBTAINED AND RECORDED. BP WNL. SCHEDULED IV ABX INFUSING PER ORDER. PATIENT HAS NO FURTHER NEEDS. PATIENT APPEARS TO BE COMFORTABLE IN BED. RR 16. BED ALARM ON FOR SAFETY. CALL LIGHT IN REACH.
[2024-03-18 06:05] LABS: ALBUMIN 3.1 g/dL (3.4-5.0); ALBUMIN/GLOBULIN RATIO 0.94 (1.1-2.4); ANION GAP 9.9 (7-21); BILIRUBIN, TOTAL 0.9 ng/dL (0.2-1.0); BUN/CREATININE RATIO 19.11 (6.0-28.6); CALCIUM 8.2 mg/dL (8.5-10.1); CREATININE, SERUM 0.68 mg/dL (0.55-1.02); MAGNESIUM 1.5 mg/dL (1.8-2.4); PHOSPHORUS, INORGANIC 2.7 mg/dL (2.5-4.9); POTASSIUM 2.9 mmol/L (3.5-5.1); PROTEIN, TOTAL 6.4 g/dL (6.4-8.2)
--- NOTE | 2024-03-18 06:07 | NUR ---
PATIENT RESTING IN BED WITH EYES CLOSED. PRN PAIN MEDICATION ADMINISTERED FOR PATIENT 01/14 BACK PAIN. PATIENT STATES "I AM FEELING BETTER THAN LAST NIGHT". PATIENT HAS NO FURTHER NEEDS. CALL LIGHT IN REACH.
--- NOTE | 2024-03-18 07:20 | NUR ---
REPORT RECEIVED FROM LOT TECHNICIAN RN VENU. PATIENT IS LYING IN BED WITH EYES CLOSED AND RESPIRATIONS ARE EVEN AND UNALBORED. CALL LIGHT AND PERSONAL BELONGINGS ARE WITHIN REACH.
[2024-03-18] MEDS ORDERED: MAGNESIUM SULFATE 2 GM/50 ML BAG IV SCH (07:45)
[2024-03-18] MEDS ORDERED: POTASSIUM CHLORIDE 40 MEQ,LIDOCAINE HCL 1% 40 MG in DEXTROSE 5% 250 ML IV ONE (08:00)
--- NOTE | 2024-03-18 08:30 | NUR ---
PATIENT RESTING IN BED, EYES CLOSED. PATIENT REFUSING BREAKFAST. YUMI LENIN AND WATER AT BEDSIDE. CALL LIGHT IN EASY REACH
--- NOTE | 2024-03-18 08:44 | NUR ---
PATIENT UPDATE GIVEN TO THE PATIENTS DAUGHTER WITH PERMISSION FROM THE PATIENT.
--- NOTE | 2024-03-18 08:53 | NUR ---
PATIENT UPDATE GIVEN TO THE PATIENTS SISTER (PATIENTS NEXT OF KIN). ALL QUESTIONS AND CONCERNS ADDRESSED. CALL ENDED.
[2024-03-18] MEDS ORDERED: ENOXAPARIN SODIUM 40 MG/0.4 ML SYR SUB-Q SCH (09:00)
--- NOTE | 2024-03-18 10:01 | NUR ---
UR CLINICAL REVIEW: [facility] OBS CRITERIA ONLY BASIC DMAP OBS 03/17/24 @ 1023 ORDER MATCHES REG NO AUTH REQUIRED PER MEDICAID GUIDELINES DISCHARGE TO HOME ANTICIPATED IN 24 HRS 03/19/23
--- NOTE | 2024-03-18 10:02 | NUR ---
VISITED DURING SPIRITUAL CARE ROUNDS. PT APPEARED TO BE SLEEPING. DID NOT DISTURB. PROVIDED PRAYER.
--- NOTE | 2024-03-18 10:50 | NUR ---
SECOND DOSE OF 2 GRAMS MAGNESIUM SULFATE ADMINISTERED PER THE EMAR. FULL ASSESSMENT COMPLETE AND DOCUMENTED IN THE CHART. PATIENT USED THE BEDSIDE COMMODE WITH SBA. PATIENT VOID 75 ML ORANGE URINE. PATIENT WITH BURNING AT URINATION. PATIENT IS ALERT AND ORIENTED TIMES FOUR. PATIENT IS ON ROOM AIR AND LUNG SOUNDS ARE CLEAR BILATERALLY. CARDIAC WITH NORMAL S1 AND S2 ON AUSCULTATION. RADIAL PULSES ARE STRONG BILATERALLY. SENSATION INTACT WITH NO COMPLAINTS OF NUMBNESS AND TINGLING. SKIN WITH SCATTERED SCARS NOTED. PATIENT WITH RIGHT AND LEFT ANKLE EDEMA. BOWEL TONES ARE ACTIVE IN ALL FOUR QUADRANTS. PATIENT WITH PAIN RATED 5/10 IN THE RIGHT SIDE OF ABDOMEN. PATIENT GIVEN IV DILAUDID AT 0943. PATIENT IS NOT REQUESTING PAIN MEDICATION AT THIS TIME. ICE PACK GIVEN TO THE PATIENT AT THIS TIME. IV SITE FLUSHED WITH 10 ML NORMAL SALINE. NS IS INFUSING AT 125 ML/HR. POTASSIUM CHLORIDE INFUSION AND MAGNESIUM SULFATE INFUSION ARE ALSO INFUSING AT THIS TIME. IV DRESSING IS CLEAN, DRY, AND INTACT. PATIENT STATED NO FURTHER NEEDS AT THIS TIME. CALL LIGHT AND PERSONAL BELONGINGS ARE WITHIN REACH.
[2024-03-18] MEDS ORDERED: LIDOCAINE HCL 4% 1 EACH PATCH TD ONE (11:30)
--- NOTE | 2024-03-18 11:51 | NUR ---
PATIENT IS LYING IN BED WITH EYES CLOSED AND RESPIRATIONS ARE EVEN AND UNLABORED. MAGNESIUM SULFATE INFUSION COMPLETE. CALL LIGHT AND PERSONAL BELONGINGS ARE WITHIN REACH.
[2024-03-18] MEDS ORDERED: PHARMACY RENAL DOSE ADJUSTMENT 1 DOSE MISC PO SCH (12:00)
--- NOTE | 2024-03-18 13:00 | NUR ---
Spoke with Lori. She states she lives in a home without steps. She lives with her adult daughter and daughter shops, cooks, cleans and cares for her. Pt states he has a bad hip. Pt uses [employer] and receives food stamps. She does not drive. Her sister, Liv helps and drives her. Pt states she now has OHP. She no longer uses [facility] clinic or Pharmacy. She also states she is in a need of a pcp. [facility]. Let her know I will request a hospital fu visit with whichever clinic can see her. She denies other needs. I contact [facility] and as pt is on an open card they cannot see her. Pt must be assisgned to [facility]. I then attempted to contact the [facility] but could not get an answer. I added pt to their google list and faxed her chart to [facility] to schedule a fu visit and requested an appt to establish care in the future.
--- NOTE | 2024-03-18 13:04 | NUR ---
Patient takes no chronic medications. Was seen in ED 03/16/24. RX given for cefdinir was not filled/picked up
--- NOTE | 2024-03-18 13:12 | NUR ---
PATIENT IS LYING IN BED ON THEIR LEFT SIDE WITH EYES CLOSED AND RESPIRATIONS ARE EVEN AND UNLABORED. CALL LIGHT AND PERSONAL BELONGINGS ARE WITHIN REACH.
--- NOTE | 2024-03-18 13:57 | NUR ---
PATIENT IS LYING IN BED WITH EYES CLOSED. PATIENT WITH NO COMPLAINTS OF PAIN " LONG I AM NOT MOVING". PATIENT RIGHT SIDE OF ABDOMEN WITH LIDOCAINE PATCH IN PLACE. PATIENT WITH AN ICE PACK ON THE RIGHT SIDE OF THE ABDOMEN WELL. IV SITE IN THE LAC FLUSHED WITH 10 ML NORMAL SALINE. IV NS IS INFUSING AT 125 ML/HR. IV POTASSIUM CHLORIDE IS INFUSING AT 68.5 ML/HR. BOWEL TONES ARE ACTIVE IN ALL FOUR QUADRANTS. PATIENT IS ON A 60 GRAM CARBOHYDRATE DIET. LAST BOWEL MOVEMENT WAS 03/14/24. PATIENT STATED NO COMPLAINTS OF NAUSEA OR VOMITING. PATIENT STATED NO FURTHER NEEDS AT THIS TIME. CALL LIGHT AND PERSONAL BELONGINGS ARE WITHIN REACH.
--- NOTE | 2024-03-18 14:45 | NUR ---
PATIENT UP TO BSC FOR VOID. 1PA FOR SAFETY. PERSONAL CLOTHING REMOVED, NOW IN GOWN. LINEN CHANGED. PATIENT PAINFUL AND TEARFUL. BACK IN BED, WARM BLANKET PROVIDED, CALL LIGHT IN EASY REACH
--- NOTE | 2024-03-18 15:48 | NUR ---
PATIENT IS LYING IN BED WITH EYES CLOSED AND RESPIRATIONS ARE EVEN AND UNLABORED. IV PUMP CLEARED OF INTAKE FLUIDS AT THIS TIME. CALL LIGHT AND PERSONAL BELONGINGS ARE WITHIN REACH.
--- NOTE | 2024-03-18 17:46 | NUR ---
I assisted patient to the bed side commode. I noticed blood in patient urine. Nurse has been notified. Warm blanket was given, and call light has been placed within reach. No further request from patient at this time
--- NOTE | 2024-03-18 19:34 | NUR ---
REPORT RECIEVED FROM DAY SHIFT RN. PATIENT RESTING IN BED, WITH VISITORS IN ROOM. PATIENT DENIES NEEDS AT THIS TIME. CALL LIGHT IN REACH.
--- NOTE | 2024-03-18 20:34 | NUR ---
METER TESTER PRIMARY OBTAINED VITALS AND INTAKE. NO NEW OUTPUT AT THIS TIME. PT BLOOD SUGAR CHECKED. PT STATES NO NEEDS AT THIS TIME. CALL LIGHT WITHIN REACH.
[2024-03-18] MEDS ORDERED: LIDOCAINE PATCH REMOVAL 1 EA TD SCH (21:00)
--- NOTE | 2024-03-18 21:17 | NUR ---
PATIENT RESTING IN BED AND APPEARS COMFORTABLE. SS INSULIN ADMINISTERED PER ORDER. NEW BAG IV ABX INFUSING PER ORDER. IV FLUSHES WNL. ASSESSMENT COMPLETE. THIS RN REMOVED LIDOCAINE PATCH. PATIENT APPEARS TO BE PAINFUL AFTER MOVEMENT. THIS RN ASKED PATIENT IF SHE NEED ANYTHING FOR THE PAIN OR NEEDED REPOSTIONED. PATIENT STATES "I JUST WANT YOU TO LEAVE ME ALONE!". THIS RN EDUCATED PATIENT TO CALL IF SHE CHANGES HER MIND AND NEEDS SOME ASSISTANCE OR PAIN MEDICATION. PATIENT VERBILIZES UNERSTANDING. BED ALARM ON FOR SAFETY. CALL LIGHT IN REACH.
--- NOTE | 2024-03-18 22:17 | NUR ---
CALL LIGHT ANSWERED. PT NEEDED TO VOID. BOX OFFICE CLERK 1PA TO BSC. PT VOIDED. PT THEN ASSISTED BACK TO BED. PT STATED NO FURTHER NEEDS AT THIS TIME. CALL LIGHT WITHIN REACH AND BED ALARM ON.
--- NOTE | 2024-03-18 23:33 | NUR ---
CALL LIGHT ANSWERED. PT REQUESTING PAIN MEDS AND THAT SHE NEEDED TO USE THE BATHROOM. RN NOTIFED AND GLASS TINTER ASSISTED PT TO BSC. PT VOIDED. PT ASSISTED BACK TO BED AND OUTPUT MEASURED. PT STATES NO FURTHER NEEDS. RN IN ROOM AND CALL LIGHT WITHIN REAC. BED ALARM ON.
--- NOTE | 2024-03-18 23:41 | NUR ---
PATIENT REPORTS 8/10 RIGHT FLANK PAIN. PRN PAIN MEDICATION ADMINISTERED PER PATIENT REQUEST. PATIENT REQUESTING SLEEP AND ANXIETY MEDICATION. MEDICATION ADMINISTERED PER PATIENT REQUEST. PATIENT DENIES FURTHER NEEDS. BED ALARM ON FOR SAFETY. CALL LIGHT IN REACH.
[2024-03-19] VITALS (9 sets, daily range): BP systolic 151–176; BP diastolic 81–99
--- NOTE | 2024-03-19 00:12 | NUR ---
ROUNDING ON PATIENT. PATIENT RESTING IN BED WITH EYES CLOSED. AWAKENS EASILY. PATIENT STATES SHE IS FEELING BETTER AND HAS NO NEEDS. CALL LIGHT IN REACH. BED ALARM ON FOR SAFETY.
--- NOTE | 2024-03-19 02:06 | NUR ---
PATIENT RESTING IN BED ON BACK WITH EYES CLOSED. RESPIRATIONS EVEN AND UNLABORED. CALL LIGHT IN REACH.
--- NOTE | 2024-03-19 03:57 | NUR ---
CALL LIGHT ANSWERED. PT NEEDED TO USE BATHROOM. FLUXER ASSISTED PT TO BSC. PT VOIDED AND ASSISTED BACK TO BED. OUTPUT MEASURED. PT STATED THAT SHE WAS IN PAIN AND FEELING NAUSEOUS. RN NOTIFED. CALL LIGHT WITHIN REACH AND BED ALARM ON.
--- NOTE | 2024-03-19 04:10 | NUR ---
PATIENT REPORTS 6/10 RIGHT FLANK PAIN AND BURNING WHEN SHE PEES. THIS RN TO ROOM. PRN PAIN AND AZO MEDICATION ADMINISTERED PER PATIENT REQUEST. VS AND I&Os OBTAINED AND RECORDED. FRESH ICE WATER. PATIENT DENIES FURTHER NEEDS. CALL LIGHT IN REACH. BED ALARM ON FOR SAFETY.
--- NOTE | 2024-03-19 05:36 | NUR ---
NEW BAG IV ABX INFUSING PER ORDER. PATIENT DENIES FURTHER NEEDS. CALL LIGHT IN REACH.
[2024-03-19 05:43] LABS: EOSINOPHILS 2.1 % (0-6); HEMATOCRIT 37.8 % (35.0-50.0); HEMOGLOBIN 12.8 g/dL (12.0-18.0); LYMPHOCYTES 22.8 % (24-44); MCH 29.1 (27-36); MCV 85.7 fl (81-99); MONOCYTES 7.3 % (0-12); NEUTROPHILS 66.8 % (39-80); PLATELET COUNT 233 K/uL (140-440); RBC 4.41 M/ul (4.3-5.7); RDW 13.7 (10.5-15.0)
[2024-03-19 05:54] LABS: ANION GAP 10.1 (7-21); BUN/CREATININE RATIO 9.67 (6.0-28.6); CALCIUM 8.2 mg/dL (8.5-10.1); CREATININE, SERUM 0.62 mg/dL (0.55-1.02); POTASSIUM 3.1 mmol/L (3.5-5.1)
--- NOTE | 2024-03-19 08:45 | NUR ---
PATIENT UP TO RESTROOM, TOLERATED FAIRLY. PATIENT REPORTS INCREASED PAIN IN RIGHT FLANK AREA WITH AMBULATION. ADMIN DILAUDID 1MG SLOW IV PUSH AT THIS TIME. IV ABX CONTINUE TO INFUSE. BREAKFAST TO PATIENT. BED ALARM INTACT.
[2024-03-19] MEDS ORDERED: POTASSIUM CHLORIDE 40 MEQ,LIDOCAINE HCL 1% 40 MG in DEXTROSE 5% 250 ML IV ONE (09:00)
--- NOTE | 2024-03-19 09:42 | NUR ---
PT NOT AVAILABLE FOR VISIT. PROVIDED PRAYER.
--- NOTE | 2024-03-19 09:44 | NUR ---
UR CLINICAL REVIEW: [facility] INPT FOR URINARY TRACT INFECTION STATE MEDICAID, BASIC DMAP FROM OBS TO INPT 03/18/24 @ 1122 ORDER MATCHES STATUS AUTH PENDING, WILL SEND CLINICALS VIA [employer]. PLAN TO DC HOME WHEN STABLE. 03/20/24
--- NOTE | 2024-03-19 13:51 | NUR ---
THE PATIENT HAS DEVELOPED SHINGLES AND WILL NEED 1-2 MORE DAYS MORE IN THE HOSPITAL. PATIENT PLANS TO DISCHARGE HOME WHEN MEDICALLY STABLE.
[2024-03-19] MEDS ORDERED: VALACYCLOVIR HCL 500 MG TAB PO SCH (15:00)
--- NOTE | 2024-03-19 15:08 | NUR ---
Pt cont. painful today. UPdated by Dr. Marcum pt has shingles on her R side. No plan for dc today.
--- NOTE | 2024-03-19 15:09 | NUR ---
PC to Dr. Layne to request a 2nd antinausea medication for pt's continuing nausea. He will put in the order.
[2024-03-19] MEDS ORDERED: droPERidol 5 MG/2 ML VIAL IV PRN (15:30)
--- NOTE | 2024-03-19 16:30 | NUR ---
PC to Dr. Layne as pt requests medication for "itching". Dr. Layne will put in an order for PO Benadryl.
[2024-03-19] MEDS ORDERED: diphenhydrAMINE HCL 25 MG CAP PO PRN (16:45)
--- NOTE | 2024-03-19 19:35 | NUR ---
REPORT RECIEVED FROM DAY SHIFT RN. PATIENT RESTING IN BED. RESPIRATIONS EVEN AND UNLABORED. CALL LIGHT IN REACH.
--- NOTE | 2024-03-19 19:54 | NUR ---
CALL LIGHT ANSWERED. PT NEEDED TO USE BATHROOM. ELECTRONICS TEST ENGINEER DONNED PPE AND ASSISTED PT TO BSC. PT VOIDED AND WAS ASSISTED BACK TO BED. PT GIVEN WARM BLANKET UPON REQUEST. PT STATES NO FURTHER NEEDS AT THIS TIME. CALL LIGHT WITHIN REACH AND BED ALARM ON.
--- NOTE | 2024-03-19 20:25 | NUR ---
TREE DOCTOR OBTAINED BLOOD SUGAR. BLOOD SUGAR IS 183. RN NOTIFED. TREE DOCTOR OBTAINED AND DOCUMENTED I&O. PT STATES NO FURTHER NEEDS AT THIS TIME. CALL LIGHT WITHIN REACH AND RN IN ROOM.
--- NOTE | 2024-03-19 20:37 | NUR ---
PATIENT REPORTING 6/1O RIGHT FLANK PAIN. PRN PAIN MEDICATION ADMINISTERED. ASSESSMENT COMPLTE. SMALL BLISTERS NOTED ON RIGHT SIDE OF ABD. BLISTERS REMAIN CLOSED AT THIS TIME. PATIENT REQUESTING PRN MEDICATIONS. PRN MEDICATIONS ADMINISTERED. SCHEDULED MEDICATIONS AND SS INSULIN ADMINISTERED. IV FLUSHES WNL. FRESH WATER PROVIDED. PATIENT HAS NO FURTHER NEEDS. BED ALARM ON FOR SAFETY. CALL LIGHT IN REACH.
--- NOTE | 2024-03-19 22:00 | NUR ---
SCHEDULED IV ABX INFUSING PER ORDER. PATIENT DENIES FURTHER NEEDS. BED ALARM ON FOR SAFETY. CALL LIGHT IN REACH.
--- NOTE | 2024-03-19 23:21 | NUR ---
PATIENT RESTING IN BED ON BACK WITH EYES CLOSED. RESPIRATIONS EVEN AND UNLABORED. CALL LIGHT IN REACH.
[2024-03-20] VITALS (9 sets, daily range): BP systolic 140–166; BP diastolic 71–108
--- NOTE | 2024-03-20 01:28 | NUR ---
PATIENT RESTING IN BED ON BACK WITH EYES CLOSED. RESPIRATIONS EVEN AND UNLABORED. CALL LIGHT IN REACH.
--- NOTE | 2024-03-20 02:09 | NUR ---
bed alarm going off soon after call light answered, pt up sba and voided 200mls orange colored urine. pt back in bed, alarm resumed and call light in reach. pt reports wanting pain medication, primary rn gregorio notified.
--- NOTE | 2024-03-20 02:39 | NUR ---
call received from laura in lab regarding positive blood cultures-preliminary. anaerobic bottle shows gram positive cocci. primary rn gregorio made aware at 0242.
--- NOTE | 2024-03-20 02:43 | NUR ---
PATIENT REPORTS 5/10 RIGHT FLANK PAIN. PRN PAIN MEDICATION ADMININSTERED PER PATIENT REQUEST. NO FURTHER NEEDS. CALL LIGHT IN REACH.
[2024-03-20 05:50] LABS: BASOPHILS 0.9 % (0-2); EOSINOPHILS 1.5 % (0-6); HEMATOCRIT 38.8 % (35.0-50.0); HEMOGLOBIN 13.3 g/dL (12.0-18.0); LYMPHOCYTES 29.8 % (24-44); MCH 29.1 (27-36); MCHC 34.2 g/dl (30-36); MONOCYTES 7.3 % (0-12); NEUTROPHILS 60.5 % (39-80); PLATELET COUNT 246 K/uL (140-440); RBC 4.57 M/ul (4.3-5.7); RDW 13.7 (10.5-15.0)
--- NOTE | 2024-03-20 05:56 | NUR ---
VS AND I&Os OBTAINED AND RECORDED. PATIENT REPORTS R FLANK PAIN. PRN PAIN MEDICATION ADMINISTERED. SCHEDULED IV ABX INFUSING PER ORDER. ASSESSMENT COMPLETE. PATIENT HAS NO FURTHER NEEDS. BED ALARM ON FOR SAFETY. CALL LIGHT IN REACH.
[2024-03-20 06:04] LABS: ALBUMIN 3.2 g/dL (3.4-5.0); ALBUMIN/GLOBULIN RATIO 0.94 (1.1-2.4); ANION GAP 10.1 (7-21); BILIRUBIN, TOTAL 1.1 ng/dL (0.2-1.0); BUN/CREATININE RATIO 7.04 (6.0-28.6); CALCIUM 8.4 mg/dL (8.5-10.1); CREATININE, SERUM 0.71 mg/dL (0.55-1.02); POTASSIUM 3.1 mmol/L (3.5-5.1); PROTEIN, TOTAL 6.6 g/dL (6.4-8.2)
--- NOTE | 2024-03-20 06:30 | NUR ---
MD CALLED BY THIS RN VIA TELEPHONE TO UPDATE HIM ABOUT PATIENTS BC RESULTS. MD HAS NO NEW ORDERS OR CHANGES AT THIS TIME.
--- NOTE | 2024-03-20 06:44 | NUR ---
UR CONCURRENT REVIEW: [facility] INPT CRITERIA. SKIN AND WOUND GRG ADDED PER NEW DX. BASIC DMAP INPT 03/18/24 NO AUTH REQUIRED PER MEDICAID GUIDELINES DISCHARGE TO HOME WHEN STABLE. PAIN REMAINS UNRESOLVED.
--- NOTE | 2024-03-20 07:26 | NUR ---
ADMIN TYLENOL 650MG PO FOR REPORTS OF 7/10 RIGHT FLANK PAIN.
[2024-03-20] MEDS ORDERED: POTASSIUM CHLORIDE 40 MEQ,LIDOCAINE HCL 1% 40 MG in DEXTROSE 5% 250 ML IV ONE (09:00)
--- NOTE | 2024-03-20 09:21 | NUR ---
Dilaudid 1mg IV and bendadryl 25mg po/azo one tab admin for reports of itching/pain and nausea.
--- NOTE | 2024-03-20 13:06 | NUR ---
PATIENT RESTING IN BED, WAKES EASILY TO VERBAL STIMULI. PATIENT REPORTS ONGOING RIGHT FLANK PAIN. DILAUDID 1MG IV SLOW PUSH AND TYLENOL 650MG PO ADMIN AT THIS TIME. IV SITE REMAINS PATENT, FLUIDS INFUSING PER PROVIDER ORDER. VITAL SIGNS TAKEN, STABLE/AFEBRILE. PATIENT HAS NO FURTHER NEEDS, CALL LIGHT WITHIN REACH.
--- NOTE | 2024-03-20 13:18 | NUR ---
PATIENT IS RESTING.PATIENT HAS DEVELOPED SHINGLES AND IS VERY PAINFUL. THE PATIENT WILL GO HOME WHEN THE MD THINKS THE PATIENT IS MEDICALLY STABLE.
--- NOTE | 2024-03-20 15:45 | NUR ---
Ordered pt dinner and breakfast. Pt still in bed.
--- NOTE | 2024-03-20 17:00 | NUR ---
CHANGED PATIENT'S BED LINENS WHEN SHE GOT UP TO USE THE BEDSIDE COMMODE.
--- NOTE | 2024-03-20 17:40 | NUR ---
Admin azo and bendaryl 25mg po for reports of urinary pain and itching.
--- NOTE | 2024-03-20 18:49 | NUR ---
BROUGHT PATIENT A WARM BLANKET WHEN PATIENT CALLED AROUND 1800PM.
--- NOTE | 2024-03-20 20:36 | NUR ---
Pt report received from JANICE Martinez at about 1905 hours. Pt is resting in bed, asleep, breathing is regular, even, and non-labored. Denie needs at that time. Call light was in reach.
--- NOTE | 2024-03-20 20:46 | NUR ---
CALL LIGHT ANSWERED, pt REPORTS PAIN IN BACK, PRN TYLENOL GIVEN-SEE EMAR. BED ALARM ON AND CALL LIGHT IN REACH, pt DENIES ADDITIONAL NEEDS OR CONCERNS. PRIMARY RN AWARE.
--- NOTE | 2024-03-20 21:25 | NUR ---
MARKETING PROJECT SPECIALIST DONNED PPE AND ENTERED ROOM. BLOOD SUGAR OBTAINED. PT STATED THAT SHE NEEDED TO USE BATHROOM. MARKETING PROJECT SPECIALIST ASSISTED PT TO BSC. PT VOIDED AND IS NOW BACK IN BED. MARKETING PROJECT SPECIALIST OBTAINED AND DOCUMENTED VITALS AND I&O. PT STATES NO FURTHER NEEDS AT THIS TIME. CALL LIGHT WITHIN REACH AND BED ALARM ON.
--- NOTE | 2024-03-20 22:09 | NUR ---
CALL LIGHT ANSWERED. PT NEEDED TO USE BATHROOM. DIRECTOR OF NURSES REGISTRY ASSISTED PT TO BSC. PT VOIDED AND ASSITED BACK TO BED. PT GIVNE HEAT PACK REQUESTED. IV PUMP ALARMING, RN NOTIFED. PT STATES NO FURTHER NEEDS AT THIS TIME. CALL LIGHT WITHIN REACH.
--- NOTE | 2024-03-20 23:06 | NUR ---
BARREL FILLER HEAD HELPED PT TO BSC. PT VOIED 400 OUT.
[2024-03-21] VITALS (7 sets, daily range): BP systolic 109–165; BP diastolic 70–95
--- NOTE | 2024-03-21 00:46 | NUR ---
CALL LIGHT ANSWERED. PT NEEDED TO USE BATHROOM. RESTAURANT EXPEDITOR DONNED PPE AND ASSISTED PT TO BSC. PT VOIDED AND WAS ASSISTED BACK TO BED. OUTPUT NOTED. PT STATES NO FURTHER NEEDS AT THIS TIME. CALL LIGHT WITHIN REACH AND BED ALARM ON.
--- NOTE | 2024-03-21 02:55 | NUR ---
CALL LIGHT ANSWERED. PT NEEDED TO VOID. TABLE TOP TILE SETTER DONNED PPE AND ASSISTED PT TO BSC. PT VOIDED AND WAS ASSISTED BACK TO BED. OUTPUT NOTED. PT COMPLAINING OF PAIN AND CRYING OUT. RN NOTIFED. CALL LIGHT WITHIN REACH AND BED ALARM ON.
--- NOTE | 2024-03-21 03:15 | NUR ---
In with pt for PO Tylenol administration per emar for pain 6 out of 10 in right flank. Pt states if she lays still, it feels better. Provided pt with fresh iced water and a hot pack. Pt denies further needs at this time.
[2024-03-21 05:24] LABS: EOSINOPHILS 2.5 % (0-6); HEMATOCRIT 40.6 % (35.0-50.0); HEMOGLOBIN 13.7 g/dL (12.0-18.0); LYMPHOCYTES 30.3 % (24-44); MCH 29.1 (27-36); MCHC 33.8 g/dl (30-36); MCV 86.1 fl (81-99); MONOCYTES 7.9 % (0-12); NEUTROPHILS 58.3 % (39-80); PLATELET COUNT 259 K/uL (140-440); RBC 4.71 M/ul (4.3-5.7)
[2024-03-21 05:37] LABS: ALBUMIN 3.2 g/dL (3.4-5.0); ALBUMIN/GLOBULIN RATIO 0.89 (1.1-2.4); ANION GAP 11.1 (7-21); BILIRUBIN, TOTAL 0.9 ng/dL (0.2-1.0); BUN/CREATININE RATIO 2.56 (6.0-28.6); CALCIUM 8.5 mg/dL (8.5-10.1); CREATININE, SERUM 0.78 mg/dL (0.55-1.02); MAGNESIUM 1.6 mg/dL (1.8-2.4); PHOSPHORUS, INORGANIC 3.4 mg/dL (2.5-4.9); POTASSIUM 3.1 mmol/L (3.5-5.1); PROTEIN, TOTAL 6.8 g/dL (6.4-8.2)
--- NOTE | 2024-03-21 07:38 | NUR ---
REPORT RECEIVED BY BHUMIKA BRYAN, ALL QUESTIONS ANSWERED.
--- NOTE | 2024-03-21 10:45 | NUR ---
THIS MORNING AFTER DOING HER BLOOD SUGAR CHECK PATIENT NEEDED TO USE THE BED SIDE COMMODE. THAN SHE ASKED FOR A HOT PACK FOR HER BACK.
--- NOTE | 2024-03-21 11:10 | NUR ---
PT RESTING IN BED, AWAKENS EASILY. C/O FLANK/BACK PAIN, PT PREVIOUSLY GIVEN PRN MEDICATION, SEE EMAR. STATES PAIN MEDICATION REDUCED PAIN TO 3/10. PT DENIES FURTHER NEEDS AT THIS TIME. CALL LIGHT IN REACH.
[2024-03-21] MEDS ORDERED: predniSONE 20 MG TAB PO SCH (12:08)
[2024-03-21 12:40] LABS: ANION GAP 10.7 (7-21); BUN/CREATININE RATIO 8.06 (6.0-28.6); CALCIUM 8.8 mg/dL (8.5-10.1); CREATININE, SERUM 0.62 mg/dL (0.55-1.02); MAGNESIUM 1.6 mg/dL (1.8-2.4); POTASSIUM 2.7 mmol/L (3.5-5.1)
--- NOTE | 2024-03-21 15:28 | NUR ---
PT UP TO COMMODE, LINEN AND GOWN CHANGE COMPLETE. RASH TO RIGHT FLANK/BACK CDI, BARRIER CREAM APPLIED. PT BACK TO BED WITH WARM BLANKET. DENIES FURTHER NEEDS AT THIS TIME. CALL LIGHT IN REACH.
--- NOTE | 2024-03-21 15:45 | NUR ---
PT MOANING IN PAIN. GAVE PT OPTION OF TYLENOL OR DILAUDID SHE STATED SHE DIDN'T CARE. 650MG OF TYLENOL ADMINISTERED FOR 6/10 RIGHT FLANK/ BACK PAIN. CALL LIGHT WITHIN REACH. PT. DENIED ANY OTHER NEEDS AT THIS TIME.
--- NOTE | 2024-03-21 16:11 | NUR ---
ATTEMPT TO CALL DR CHERRY REGARDING LAB RESULTS, NO ANSWER AT THIS TIME.
[2024-03-21] MEDS ORDERED: POTASSIUM CHLORIDE 10 MEQ/100 ML BAG IV ONE (16:45)
[2024-03-21] MEDS ORDERED: MAGNESIUM SULFATE 2 GM/50 ML BAG IV ONE ×2 (16:45→17:45)
[2024-03-21] MEDS ORDERED: POTASSIUM CHLORIDE 10 MEQ TABCR PO ONE (16:45)
[2024-03-21] MEDS ORDERED: POTASSIUM CHLORIDE 40 MEQ,LIDOCAINE HCL 1% 40 MG in DEXTROSE 5% 250 ML IV ONE (17:00)
--- NOTE | 2024-03-21 18:14 | NUR ---
PT C/O 01/14 FLANK PAIN, GIVEN PRN PAIN MEDS, SEE EMAR. PT UP TO COMMODE AND BACK TO BED. DENIES FURTHER NEEDS AT THIS TIME. CALL LIGHT IN REACH.
--- NOTE | 2024-03-21 20:13 | NUR ---
Pt in john[place], room air, Isolation. alert and oriented, cooperative
--- NOTE | 2024-03-21 21:31 | NUR ---
Awake, alert and oriented, up to BSC x1, voided QS dark yellow urine. c/o R flank pain, medicated with Dilaudid 1mg IV. barrier cream applied to R flank red areas, not open, not crusty. tender to touch. On room air, clear lungs, abd shell. IVF/ IV ABX infusing RAC. turns and repositions self in bed. CBG 240 received 5 units SS Insulin. tolerating liquids well, no c/o n/v
--- NOTE | 2024-03-21 23:09 | NUR ---
Continuos on isolation precautions. c/o itching everywhere, no redness noted except R flank, no chnge. Medicated with Benadry 25mg po. Up to BRp, voiding QS tea colored urine. IVF infusing, no further c/o pain
[2024-03-22] VITALS (8 sets, daily range): BP systolic 129–154; BP diastolic 77–84
--- NOTE | 2024-03-22 00:10 | NUR ---
RESTING, EYES CLOSED, NO DISTRESS, IVF/ABX INFUSING W/O PROBLEMS. NO FURTHER C/O PAIN OR ITCHING. CONTINUES ON ISOLATION PRECAUTIONS
--- NOTE | 2024-03-22 01:07 | NUR ---
C/O 01/14 R FLANK PAIN, MEDICATED WITH DILAUDID 1MG IV. IVF INFUSING. TURNS AND REPOSITION SELF IN BED
--- NOTE | 2024-03-22 04:09 | NUR ---
c/o 6-01/14 r flank pain from shingles. medicated with Dilaudid 1mg IV. R flank area red, tender, no open blisters, . IVF infusing, turns and repositions self in bed. Sugar free Jello given on requests
[2024-03-22 05:22] LABS: BASOPHILS 1.1 % (0-2); EOSINOPHILS 0.6 % (0-6); HEMATOCRIT 37.9 % (35.0-50.0); HEMOGLOBIN 12.9 g/dL (12.0-18.0); MCH 29.2 (27-36); MCHC 34.1 g/dl (30-36); MCV 85.5 fl (81-99); MONOCYTES 7.6 % (0-12); NEUTROPHILS 59.7 % (39-80); PLATELET COUNT 268 K/uL (140-440); RBC 4.43 M/ul (4.3-5.7); RDW 13.9 (10.5-15.0)
[2024-03-22 05:31] LABS: ANION GAP 12.4 (7-21); BUN/CREATININE RATIO 8.57 (6.0-28.6); CALCIUM 8.6 mg/dL (8.5-10.1); CREATININE, SERUM 0.7 mg/dL (0.55-1.02); MAGNESIUM 1.9 mg/dL (1.8-2.4); POTASSIUM 3.4 mmol/L (3.5-5.1)
--- NOTE | 2024-03-22 06:55 | NUR ---
Pt continues on contac/droplet isolation. Shilges L lateral abd and back side. red colored, notes no open areas. c/o 9/10 pain, medicated with Dilaudid 1mg IV. on room ait. IVf infusing, no c/o adverser eaction to abx. IV site patent. pain control/ barrier cream applied to area. Has used BSC, had abm , crying, reassured, calmed down
--- NOTE | 2024-03-22 07:16 | NUR ---
Pt report received from JANICE Huntley. Pt is asleep in bed, on her left side, but awakens easily to quiet noise. Pt immediately begins moaning as soon as she opens her eyes but does not make any requests. White board updated, side rails up, call light in reach.
--- NOTE | 2024-03-22 09:54 | NUR ---
THIS RN IN ROOM TO COMPLETE VS AND I/O. PT EDUCATED ON PAIN MEDICATIONS FOR NERVE PAIN AND PT WILLING TO DISCUSS WITH MD. STATES "SOME" PAIN IMPROVEMENT WITH STEROIDS, THINKS SHINGLES SPREADING TO SCALP, NO VESICLES VISUALIZED. ICE PACK PROVIDED FOR SIDE, WARM BLANKET PROVIDED. CALL LIGHT IN REACH.
--- NOTE | 2024-03-22 11:55 | NUR ---
In pt room to assist her to the shower. Pt IV site covered and 1pa pt in to the bathroom to sit in shower chair for shower after IV pain med administered slow IVP. Pt is tearful and painful. Encouraged pt in her efforts to get up and practice good hygiene, and encouraged pt to talk about what she is feeling. Pt states that it's her sister's/friend's birthday today and that her own birthday is 3 days away. She is hoping to have someone [place], but states she understands if that isn't allowed here in the hospital. Pt verbalizes understanding that she needs to use the call light when she is finished in the shower.
--- NOTE | 2024-03-22 13:59 | NUR ---
PATIENT IN BED AT THIS TIME. PERCUSSION INSTRUCTOR CHARTED VITALS AND I&O'S. CALL LIGHT WITHIM REACH, NO FURTHER NEEDS AT THIS TIME.
[2024-03-22] MEDS ORDERED: PREGABALIN 25 MG CAP PO SCH (14:27)
--- NOTE | 2024-03-22 15:54 | NUR ---
PATIENT IN BED AT THIS TIME. CALL LIGHT WITHIN REACH, NO FURTHER NEEDS AT THIS TIME.
[2024-03-22] MEDS ORDERED: IBLOOD GLUCOSE TEST STRIP 1 EA TEST XX PRN (18:30)
[2024-03-22] MEDS ORDERED: DEXTROSE 50% 50 ML SYR IV PRN ×2 (18:30)
[2024-03-22] MEDS ORDERED: DEXTROSE 5% 1,000 ML IV PRN (18:30)
[2024-03-22] MEDS ORDERED: GLUCAGON,HUMAN RECOMBINANT 1 MG/ML VIAL SUB-Q PRN (18:30)
[2024-03-22] MEDS ORDERED: INSULIN LISPRO 100 UNIT/ML ML SUB-Q SCH (21:00)
[2024-03-22] MEDS ORDERED: IBLOOD GLUCOSE TEST STRIP 1 EA TEST VI SCH (21:00)
--- NOTE | 2024-03-22 21:35 | NUR ---
Pt awake, cooperative with vitals and assessment. c/o abd pain and medicated with Dilaudid. IVf infusign. On room air, much better affect. clear lungs, abd soft, decreased redness and no blister noted R flank/abd/back. barrier cream applied. turns and repositions self in bed. CBG 244, received 5 units SS Insulin. tolerating liquids well. Had bm today
--- NOTE | 2024-03-22 23:04 | NUR ---
pT UP TO BRP, VOIDED LIGHT TEA COLORED URINE. HAD SOFT BM. BACK TO BED, DOES OWN CRAY CARE. ivf INFUSING, TOLERATING LIQUIDS, NO N/V. C/O R FLANK PAIN. MEDICATED WITH TYLENOL 650MG PO; C/O ITCHING R FLANK, MEDICATED WITH BENADRYL 25MG PO; C/O INSOMNIA, MEDICATED WITH MELATONIN.. CONTINUES ON CONTACT/DROPLET ISOLATION PRECAUTIONS.
--- NOTE | 2024-03-23 01:48 | NUR ---
awake, c/o 7/10 R flank pain, medicated with Dilaudid 1mg IV. watching tv. calm mood, coooperative
[2024-03-23 05:20] VITALS: BP 120/65
[2024-03-23 05:31] VITALS: BP 120/65
[2024-03-23 06:07] LABS: ANION GAP 12.1 (7-21); BUN/CREATININE RATIO 13.75 (6.0-28.6); CALCIUM 8.3 mg/dL (8.5-10.1); CREATININE, SERUM 0.8 mg/dL (0.55-1.02); POTASSIUM 3.1 mmol/L (3.5-5.1)
--- NOTE | 2024-03-23 07:58 | NUR ---
PT REFUSED TO GET UP IN CHAIR FOR BREAKFAST. TOOK PT BLOOD SUGAR AND IT WAS CHARTED PT DIDNT NEED ANYTHING ELSE AND CALL LIGHT IS WITHIN REACH.
--- NOTE | 2024-03-23 08:21 | NUR ---
Patient awake, alert and oriented x4, no acute distress. Patient sitting up eating breakfast at this time. Patient reports 6/10 right flank pain where rash is. Admin tylenol 650mg po, benadryl 25mg po and dilaudid 1mg iv. Patient reports she wants to discharge home. Personal supplies and call light within reach.
[2024-03-23] MEDS ORDERED: predniSONE 20 MG TAB PO SCH (09:00)
[2024-03-23 09:30] VITALS: BP 152/88
[2024-03-23 09:42] VITALS: BP 152/88
[2024-03-23] MEDS ORDERED: PREDNISONE10 MG PO (09:44)
[2024-03-23] MEDS ORDERED: PREGABALIN25 MG PO (09:46)
[2024-03-23] MEDS ORDERED: VALACYCLOVIR1000 MG PO (09:48)
[2024-03-23] MEDS ORDERED: METFORMIN HCL500 MG PO (10:03)
--- NOTE | 2024-03-23 12:03 | NUR ---
UR CONCURRENT REVIW: [facility]CG-MEETS STAGE 2 FOR DISCHARGE BASIC DMAP INPT 03/18/24 @ 1122 ORDER MATCHES REG NO AUTH REQUIRED PATIENT TO DC HOME TODAY
== END 2024-03-23 12:50 | disposition home or self-care (01) | DRG 690 ==
LOC: ED 10:21 → MS 10:23
PROVIDERS: Emergency Medicine; Student in an Organized Health Care Education/Training Program; ADMIT Family Medicine; ATTEND Family Medicine
DX: N12 Tubulo-interstitial nephritis, not specified as acute or chronic (principal); B02.9 Zoster without complications; E87.6 Hypokalemia; Z66 Do not resuscitate; E83.42 Hypomagnesemia; M25.452 Effusion, left hip; M19.90 Unspecified osteoarthritis, unspecified site; E11.65 Type 2 diabetes mellitus with hyperglycemia; F15.10 Other stimulant abuse, uncomplicated; F31.9 Bipolar disorder, unspecified; F10.10 Alcohol abuse, uncomplicated; F17.210 Nicotine dependence, cigarettes, uncomplicated; F41.0 Panic disorder [episodic paroxysmal anxiety]; G47.00 Insomnia, unspecified; Z86.73 Personal history of transient ischemic attack (TIA), and cerebral infarction without residual deficits; Z90.710 Acquired absence of both cervix and uterus; Z90.49 Acquired absence of other specified parts of digestive tract; Z98.890 Other specified postprocedural states; Z88.1 Allergy status to other antibiotic agents; Z79.891 Long term (current) use of opiate analgesic; Z79.82 Long term (current) use of aspirin; Z79.2 Long term (current) use of antibiotics
CPT/HCPCS: 36415; 80048; 80053; 81001; 83036; 83605; 83735; 84100; 85025; 87040; 96366; 96367; 96372; 96376; A9270; G0378; J0696; J0744; J1170; J1650; J1815; J1885; J2405; J2543; J3475; J3480; J3490; J7030; J7050; J7060; J7512

== ENCOUNTER 2024-04-09 00:40 | Emergency (ER) | payer OTHER ==
[~2024-04-09] VITALS: Ht 162.6 cm; Wt 92.0 kg
[~2024-04-09 00:40] MED LIST changes: +METFORMIN HCL500 MG PO; +PREDNISONE10 MG PO; +PREGABALIN25 MG PO; +VALACYCLOVIR1000 MG PO
--- OUTSIDE RECORDS SUMMARY | 2024-04-09 00:46 | XMS ---
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 Jimmy has no Care Guidelines for this patient. [facility] NOTE: Visits indicate total known visits. ED/C VISIT TRACKING (12 MO.) 04/09/2024 00:[address] [facility] TYPE: Emergency COMPLAINT: - FALL 03/17/2024 10:22 [facility] [place] TYPE: Emergency COMPLAINT: - FLANK PAIN 03/16/2024 11:57 [facility] [place] TYPE: Emergency COMPLAINT: - FLANK PAIN DIAGNOSES: - Allergy status to other drugs, medicaments and biological substances - Essential (primary) hypertension - nursing home (current) use of aspirin - Nicotine dependence, unspecified, uncomplicated - Personal history of transient ischemic attack (TIA), and cerebral infarction without residual deficits - Tubulo-interstitial nephritis, not specified as acute or chronic - Type 2 diabetes mellitus without complications - Unspecified abdominal pain INPATIENT VISIT TRACKING (12 MO.) 03/18/2024 11:22 [facility] [place] TYPE: Medical Surgical COMPLAINT: - UTI DIAGNOSES: - Acquired absence of both cervix and uterus - Acquired absence of other specified parts of digestive tract - Alcohol abuse, uncomplicated - Allergy status to other antibiotic agents - Bipolar disorder, unspecified - Do not resuscitate - Effusion, left hip - Hypokalemia - Hypomagnesemia - Insomnia, unspecified - nursing home (current) use of antibiotics - nursing home (current) use of aspirin - nursing home (current) use of opiate analgesic - Nicotine dependence, cigarettes, uncomplicated - Other specified postprocedural states - Other stimulant abuse, uncomplicated - Panic disorder [episodic paroxysmal anxiety] - Personal history of transient ischemic attack (TIA), and cerebral infarction without residual deficits - Tubulo-interstitial nephritis, not specified as acute or chronic - Type 2 diabetes mellitus with hyperglycemia - Unspecified osteoarthritis, unspecified site - Zoster without complications [email or web address]
[2024-04-09] MEDS ORDERED: ondansetron HCL 4 MG/2 ML VIAL IV ONE (01:00)
[2024-04-09] MEDS ORDERED: HYDROmorphone HCL 1 MG/ML SYR IV PRN (01:00)
[2024-04-09 01:10] LABS: HEMOGLOBIN 13.2 g/dL (12.0-18.0); MCH 29.5 (27-36); MCHC 33.9 g/dl (30-36); PLATELET COUNT 295 K/uL (140-440); RBC 4.49 M/ul (4.3-5.7); RDW 14.8 (10.5-15.0)
[2024-04-09 01:15] LABS: BILIRUBIN, URINE NEGATIVE (negative); BLOOD/HGB, URINE LARGE (Negative); KETONE, URINE NEGATIVE (Negative); LEUK ESTERASE, URINE SMALL (negative); NITRITE, URINE NEGATIVE (negative)
[2024-04-09] MEDS ORDERED: LACTATED RINGER'S 1,000 ML IV ONE (01:15)
[2024-04-09 01:22] LABS: EPITHELIAL CELLS, URINE SQUAMOUS 3+ /lpf (0-1+); RED BLOOD CELLS, URINE 21-40 /hpf (0-5)
[2024-04-09 01:23] LABS: BACTERIA, URINE 3+ /hpf (negative); CASTS, URINE NONE SEEN \\lpf; COLLECTION TYPE, URINE CLEAN CATCH; CRYSTALS, URINE NONE SEEN (0-1+); REFLEX CULTURE, URINE No (No); WHITE BLOOD CELLS, URINE 21-40 /HPF (0-5)
[2024-04-09 01:26] LABS: INR 0.92 (0.80-1.30); PARTIAL THROMBOPLASTIN TIME 26.5 Sec (22.9-41.3); PROTIME 11.7 Sec (11.2-14.2)
[2024-04-09 01:27] LABS: EOSINOPHILS, MANUAL DIFF 3; LYMPHOCYTES, MANUAL DIFF 41; MONOCYTES, MANUAL DIFF 1; NEUTROPHILS, MANUAL DIFF 55
[2024-04-09] MEDS ORDERED: FAMOTIDINE 20 MG/ 2 ML VIAL IV ONE (01:30)
[2024-04-09] MEDS ORDERED: HYDROmorphone HCL 1 MG/ML SYR IV ONE (01:30)
[2024-04-09 01:34] LABS: ALBUMIN 3.2 g/dL (3.4-5.0); ALBUMIN/GLOBULIN RATIO 0.91 (1.1-2.4); ANION GAP 14.3 (7-21); BILIRUBIN, TOTAL 0.4 ng/dL (0.2-1.0); BUN/CREATININE RATIO 15.38 (6.0-28.6); CREATININE, SERUM 0.78 mg/dL (0.55-1.02); MAGNESIUM 1.2 mg/dL (1.8-2.4); POTASSIUM 3.3 mmol/L (3.5-5.1); PROTEIN, TOTAL 6.7 g/dL (6.4-8.2)
[2024-04-09 01:39] LABS: AMPHETAMINES, URINE POSITIVE (NEGATIVE); BARBITURATES, URINE NEGATIVE (NEGATIVE); BENZODIAZEPINE, URINE NEGATIVE (NEGATIVE); BUPRENORPHINE, URINE NEGATIVE (NEGATIVE); CANNABINOID, URINE NEGATIVE (NEGATIVE); COCAINE, URINE NEGATIVE (NEGATIVE); ECSTASY, URINE NEGATIVE (NEGATIVE); FENTANYL, URINE NEGATIVE (NEGATIVE); METHADONE, URINE NEGATIVE (NEGATIVE); OXYCODONE, URINE NEGATIVE (NEGATIVE); PHENCYCLIDINE, URINE NEGATIVE (NEGATIVE)
[2024-04-09 01:53] LABS: OPIATES, URINE NEGATIVE (NEGATIVE)
[2024-04-09] MEDS ORDERED: droPERidol 5 MG/2 ML VIAL IV ONE (02:00)
[2024-04-09] MEDS ORDERED: TRAMADOL HCL50 MG PO (02:48)
[2024-04-09] MEDS ORDERED: LYRICA75 MG PO (02:48)
[2024-04-09 02:58] VITALS: BP 135/78
--- NOTE | 2024-04-10 11:57 | EKG ---
[facility] [address] [facility] [place] [address] Signed Normal sinus rhythm Normal ECG No previous ECGs available Confirmed by Fer Cherry MD ([id number]) on 04/10/2024 11:57:36 AM Electronically Signed By: FER CHERRY DO 04/10/24 1157 PATIENT NAME: ROSEANNA PRADO Electrocardiogram DATE OF : 69 PHYSICIAN: FER CHERRY DO REPORT #: [id number] REPORT IS CONFIDENTIAL AND NOT TO BE RELEASED WITHOUT AUTHORIZATION
== END 2024-04-09 02:59 | disposition home or self-care (01) ==
LOC: ED 00:40
PROVIDERS: Internal Medicine
DX: B02.29 Other postherpetic nervous system involvement (principal); E11.9 Type 2 diabetes mellitus without complications; I10 Essential (primary) hypertension; M16.12 Unilateral primary osteoarthritis, left hip; Z86.73 Personal history of transient ischemic attack (TIA), and cerebral infarction without residual deficits; F17.200 Nicotine dependence, unspecified, uncomplicated; Z88.8 Allergy status to other drugs, medicaments and biological substances; Z79.84 Long term (current) use of oral hypoglycemic drugs
CPT/HCPCS: 36415; 51701; 71045; 74177; 80053; 80307; 81001; 83690; 83735; 84484; 85025; 85610; 85730; 87088; 93005; 93010; 99284-25; G0480; J1170; J1790; J2405; J7121; Q9967

== ENCOUNTER 2024-09-28 06:45 | Day surgery (SDC) | payer OTHER ==
[2024-09-15 14:55] VITALS: BP 114/79
[~2024-09-28] VITALS: Ht 162.6 cm; Wt 86.4 kg
[~2024-09-28 06:45] MED LIST changes: +ANTIFUNGAL113 GM TOP; +AZO D-MANNOSE500 MG PO; +BAYER CHEWABLE81 MG PO; +BIOTENE PBF473 ML MM; +DENTA 5000 PLUS51 GM MM; +IBU800 MG PO; +LACTATED RINGER'S 1,000 ML IV SCH; +LYRICA75 MG PO; +METFORMIN HCL1000 MG PO; +OZEMPIC0.25 MG/02 SUB-Q; +VICTOZA 2-0.6 MG/0.1 SUB-Q
[2024-09-28 07:00] VITALS: BP 132/82
[2024-09-28] MEDS ORDERED: IBLOOD GLUCOSE TEST STRIP 1 EA TEST VI PRN (07:00)
[2024-09-28] MEDS ORDERED: CEFAZOLIN SODIUM 2 GM/20 ML SYR IV SCH ×2 (07:00→15:00)
[2024-09-28] MEDS ORDERED: TRANEXAMIC ACID IN NACL,ISO-OS 1,000 MG/100 ML PIGGYBACK IV SCH ×2 (07:00→11:55)
[2024-09-28] MEDS ORDERED: LIDOCAINE HCL 1% 5 ML SDV INJ ONE (07:00)
[2024-09-28] MEDS ORDERED: PANTOPRAZOLE SODIUM 40 MG TABEC PO SCH (07:00)
[2024-09-28] MEDS ORDERED: ondansetron HCL 4 MG TAB PO SCH (07:00)
[2024-09-28] MEDS ORDERED: INTRA-ARTICULAR ANALGESIC INJECTION XX SCH (07:00)
[2024-09-28] MEDS ORDERED: GABAPENTIN 600 MG TAB PO SCH (07:00)
[2024-09-28] MEDS ORDERED: OXYCODONE HCL 5 MG TAB PO SCH (07:00)
[2024-09-28] MEDS ORDERED: MIDAZOLAM HCL 2 MG/2 ML VIAL ONE (08:37)
[2024-09-28] MEDS ORDERED: BUPIVACAINE 0.75% IN DEXTROSE 2 ML AMP ONE (08:37)
[2024-09-28] MEDS ORDERED: propofoL 200 MG/20 ML VIAL ONE ×2 (08:37→10:14)
[2024-09-28] MEDS ORDERED: LIDOCAINE HCL 2% 5 ML SDV ONE (08:37)
[2024-09-28] MEDS ORDERED: ASPIRIN 325 MG TAB PO SCH (09:00)
[2024-09-28] MEDS ORDERED: OXYCODONE HCL 5 MG TAB PO PRN (09:00)
[2024-09-28] MEDS ORDERED: KETOROLAC TROMETHAMINE 30 MG/ML VIAL IV PRN (09:00)
[2024-09-28] MEDS ORDERED: ESMOLOL HCL 100 MG/10 ML VIAL IV ONE (10:07)
[2024-09-28] MEDS ORDERED: TRANEXAMIC ACID 1,000 MG/10 ML AMP ONE (10:10)
[2024-09-28] MEDS ORDERED: DEXAMETHASONE SOD PHOS 4 MG/ML VIAL ONE (10:23)
[2024-09-28] MEDS ORDERED: ePHEDrine sulfate 50 MG/ML AMP ONE (10:58)
[2024-09-28] MEDS ORDERED: LACTATED RINGER'S 1,000 ML IV ONE (11:07)
[2024-09-28 12:07] VITALS: BP 122/77
--- NOTE | 2024-09-28 12:10 | NUR ---
ICED WATER AND APPLESAUCE GIVEN. CALL LIGHT WITHIN REACH.
--- NOTE | 2024-09-28 12:22 | NUR ---
1213- BEDSIDE REPORT RECIEVED FROM JANICE JONES. SURGICAL SITE ASSESSED THAT IS CDI. CRYCUFF IN PLACE. SPINAL LEVEL CHECKED AND SHOWS A T-10. PT SNACKING ON CRACKERS AND WATER. PT REQUESTS A HAM SANDWICH. NO OTHER NEEDS AT THIS TIME. CALL LIGHT IN REACH, BED IN THE LOWEST POSITION AND LOCKED.
[2024-09-28 12:52] VITALS: BP 152/93
[2024-09-28] MEDS ORDERED: ASPIRIN325 MG PO (12:57)
[2024-09-28] MEDS ORDERED: OXYCODONE HCL5 MG PO (12:57)
[2024-09-28] MEDS ORDERED: DICLOFENAC SODI75 MG PO (12:57)
[2024-09-28] MEDS ORDERED: GABAPENTIN300 MG PO (12:58)
[2024-09-28] MEDS ORDERED: SENNA LAX8.6 MG PO (12:58)
[2024-09-28] MEDS ORDERED: CEFUROXIME500 MG PO (12:58)
[2024-09-28 13:58] VITALS: BP 136/78
--- NOTE | 2024-09-28 14:11 | NUR ---
1410- VITAL SIGNS OBTAINED. PT REPORTS BEING COLD. PT OFFERED MORE BLANKETS. PT REPORTS 5/10 PAIN THAT IS TOLERABLE. PT REPORTS SOME NAUSEA BUT REQUESTING PUDDING. PT RESTING WITH EYES CLOSED. PUDDING PROVIDED. DISCHARGE CRITERIA DISCUSSED AND PT IS AGREEABLE. DERMATOME LEVEL SHOWWS L4.
[2024-09-28] MEDS ORDERED: ACETAMINOPHEN 500 MG TAB PO SCH (15:00)
[2024-09-28] MEDS ORDERED: GABAPENTIN 300 MG CAP PO SCH (15:00)
--- NOTE | 2024-09-28 15:02 | NUR ---
1450- PT IS RESTING IN HER STRETCHER. DERMATOME LEVELS ARE DECREASING AND PT REPORTS SOME NUMBNESS IN THE RIGHT FOOT. PHYSCIAL THERAPY IS HERE TO DO THEIR ASSESSMENT.
[2024-09-28 15:45] VITALS: BP 119/75
--- NOTE | 2024-09-28 16:24 | NUR ---
1350- VITAL SIGNS OBTAINED. PT REPORTS 5/10 PAIN AND DENIES NAUSEA. PT GETTING DRESSED WITH HELP OF DAUGHTER. 1412- DISCHARGE INSTRUCTIONS GONE OVER AND EDUCATION GIVEN WITH DAUGHTER AND GRANDSON AT BEDSIDE. ALL QUESTIONS AND CONCERNS ANSWERED. IV REMOVED. PT HAS ALL BELONGINGS AND FWW. PT IS DISCHARGED FROM DAY SURGERY VIA WHEELCHAIR TO DAUGHTERS CAR.
[2024-09-28] MEDS ORDERED: SENNOSIDES 1 TAB PO SCH (21:00)
[2024-09-29] MEDS ORDERED: CELECOXIB 200 MG CAP PO SCH (08:00)
[2024-09-29] MEDS ORDERED: DICLOFENAC SOD 75 MG TABEC PO SCH (08:00)
--- NOTE | 2024-09-30 10:05 | OR ---
[facility] [address] [place], [place] [address] Signed DATE OF OPERATION: 09/28/2024 SURGEON: Yeni Dalal MD PREOPERATIVE DIAGNOSIS: Severe degenerative joint disease, left hip. POSTOPERATIVE DIAGNOSIS: Severe degenerative joint disease, left hip. PROCEDURE PERFORMED: Left total hip arthroplasty with Efraín. GRASS FARM LABORER: Yoon Avalos PA-C. Yoon was present and critical for all portions of procedure. ANESTHESIA: Spinal. BLOOD LOSS: 200 mL. IMPLANTS: Garcia Secure-Fit Advanced size 7 with a 52 mm cup and +5 ceramic head, two 6.5 screws were placed. BRIEF HISTORY: Caitlyn is a 59-year-old female with progressive worsening of osteoarthritis in her hip. Once consent was obtained, she was taken to the operating room. DESCRIPTION OF PROCEDURE: After adequate anesthesia, she was placed in the right lateral decubitus position. All downside pressure points were well padded. Axillary roll was placed. The leg was prepped and draped in a standard sterile fashion all the way to the ribcage. The three pins for the computer array were placed in the iliac crest and the posterior half three fingerbreadths posterior to the ASIS. The approach to the hip was then made through a standard anterior lateral approach. This was carried through the skin subcutaneous tissue and directly down onto the IT band. The IT band was divided longitudinally. The vastus lateralis was then divided from the tip of the trochanter along the anterior Electronically Signed By: YENI DALAL MD 09/30/24 1005 PATIENT NAME: CAITLYN PRADO OPERATIVE REPORT DATE OF : 69 REPORT #: [id number] PHYSICIAN: YENI DALAL MD PCP: DAVID PFEIFFER MD REPORT IS CONFIDENTIAL AND NOT TO BE RELEASED WITHOUT AUTHORIZATION [facility] [address] [place], [place] [address] Signed margin of the femur distally and subperiosteally elevated. The gluteus medius was split along its anterior margin and elevated off the femoral neck. The hip dislocated quite easily. The leg lengths were then marked on the computer and the hip was dislocated and the femoral neck cut was made one fingerbreadth above the lesser trochanter. The periacetabular soft tissue was removed. There were multiple small cysts in the acetabulum that were curetted. The fine anatomic points of the acetabulum were then registered with the computer and the robot was brought in. The acetabulum was reamed with a single pass 52. This was felt to fit quite nicely. Her bone was very soft, however. We then impacted the cup from 40 degrees of abduction and 20 degrees of anteversion. Two 6.5 screws were placed in the posterior superior quadrant. The acetabular liner was then snapped into position. Attention was then turned to proximal femur which was opened with a Acquisioie cutter, followed by the Teresaey awl. This was then sequentially broached up to a 7 with a 7 found to be well fitting. Initial reduction with a 0 showed the leg lengths to be little bit short and her hip to be loose. We switched to a +5 and this was quite tight. The range of motion was 100 degrees of flexion with 30 internal and external rotation, no impingement. The hip was then dislocated and the trials were removed. The final stem was impacted to the same level, which was quite well seated in the bone. The +5 head was impacted on and it was reduced, taken through range of motion as noted above and found to be stable. The hip was then irrigated with one bottle of Surgiphor followed by normal saline. The hip capsule was then closed using #2 FiberWire. The vastus and IT band layers were closed independently using #2 Stratafix, subcutaneous tissue with 0 Stratafix and the skin with 3-0 Stratafix. All wounds were then sealed using LiquiBand. They were dressed with Acticoat-7 dressing, ABDs and Dada wrap. The patient was awakened, taken to the recovery room in satisfactory condition. All sponge, needle, and instrument counts were correct. Yeni Dalal MD BA/MODL /[id number] Copies: ~ Electronically Signed By: YENI DALAL MD 09/30/24 1005 PATIENT NAME: CAITLYN PRADO OPERATIVE REPORT DATE OF : 69 REPORT #: [id number] PHYSICIAN: YENI DALAL MD PCP: DAVID PFEIFFER MD REPORT IS CONFIDENTIAL AND NOT TO BE RELEASED WITHOUT AUTHORIZATION
--- NOTE | 2024-09-30 17:52 | PATH ---
[facility] [address] [place], [place] [address] Signed SPECIMEN(S): A LEFT HIP TISSUE SPECIMEN SOURCE: A. LEFT HIP TISSUE CLINICAL HISTORY: Left hip osteoarthritis FINAL PATHOLOGIC DIAGNOSIS: Soft tissue from left hip: - Benign fibroconnective tissue with chronic synovitis and stromal fibrosis. - No abscess, granuloma, or malignancy identified. P MICROSCOPIC EXAMINATION: Histologic sections of all submitted blocks are examined by light microscopy. These findings, together with the gross examination, support the pathologic diagnosis. GROSS DESCRIPTION: The specimen, labeled and designated "Rupal Enriquez, left hip tissue," is received in formalin and consists of irregular shaped pink-kurtz, focally congested fibromembranous and cartilage tissue fragments that aggregate measure 3.0 x 2.8 x 0.7 cm. Sectioning through the specimen is grossly unremarkable. Furniture Sprayer sections are submitted in (A1). JS (under the direct supervision of a pathologist) The Gross Description was prepared using a voice recognition system. The report was reviewed for accuracy; however, sound-alike word errors, addition and/or deletions may occur. If there is any question about this report, please contact Client Services. ADDITIONAL NOTES: Immunohistochemical and/or in situ hybridization studies if performed in this case included appropriate positive controls that reacted as expected. This test was developed and its performance characteristics determined by [facility]. It has not been cleared or approved by the U.S. Food and Drug Administration. The FDA has determined that such clearance or approval is not necessary. This test is used for clinical purposes. It should not be regarded as investigational or for research. [facility] is certified under the PATIENT NAME: ROSEANNA PARDO PATHOLOGY DATE OF : 69 REPORT #: [id number] PHYSICIAN: DHIRAJ MCGINNIS PCP: DAVID PFEIFFER MD REPORT IS CONFIDENTIAL AND NOT TO BE RELEASED WITHOUT AUTHORIZATION [facility] [address] [place] [id number] Signed Clinical Laboratory Improvement Amendments of 1988 (CLIA) as qualified to perform high complexity clinical laboratory testing. PERFORMING LABORATORY: Technical component was performed by [facility], [address] [place] [id number] (CLIA# [id number]). Professional interpretation was performed by [facility], [address] [place] [id number] (CLIA#: [id number]). Diagnostician: Micheal Justice MD Pathologist Electronically Signed 09/30/2024 Copies: ~ PATIENT NAME: ROSEANNA PRADO PATHOLOGY DATE OF : 69 REPORT #: [id number] PHYSICIAN: DHIRAJ MCGINNIS PCP: DAVID PFEIFFER MD REPORT IS CONFIDENTIAL AND NOT TO BE RELEASED WITHOUT AUTHORIZATION
== END 2024-09-28 16:12 | disposition home or self-care (01) ==
LOC: DS 06:45
PROVIDERS: ATTEND Specialist
PROC: 0SRB03Z Replacement of Left Hip Joint with Ceramic Synthetic Substitute, Open Approach (ICD-10-PCS; principal; 2024-09-28 09:05)
DX: M16.12 Unilateral primary osteoarthritis, left hip (principal); I12.9 Hypertensive chronic kidney disease with stage 1 through stage 4 chronic kidney disease, or unspecified chronic kidney disease; E11.22 Type 2 diabetes mellitus with diabetic chronic kidney disease; N18.30 Chronic kidney disease, stage 3 unspecified; Z79.84 Long term (current) use of oral hypoglycemic drugs; Z79.899 Other long term (current) drug therapy
CPT/HCPCS: 01214; 72170; 88304; 88305; 97161; 97530; A9270; C1713; C1776; J0690; J1100; J2003; J2250; J2704; J7121